=== PATIENT | female | born 1945 | race Caucasian/White ===

== ENCOUNTER 2021-01-30 11:25 | Observation (INO) | payer OTHER, SELFPAY ==
[2021-01-30] VITALS (22 sets, daily range): BP systolic 115–143; BP diastolic 52–80; PULSE 59–101; RESP 16–20; TEMP 36.6–37.1; O2SAT 94–100; BMI 41.8; BMI 38.9
[2021-01-30 12:19] LABS: Mean Corpuscular HGB Conc 32.8 % (30-36); Mean Corpuscular Hemoglobin 33.6 PG (26-34); Mean Corpuscular Volume 102.4 fL (80-100); Red Cell Distribution Width 17.2 % (11.6-14.8)
[2021-01-30 12:27] LABS: Alanine Aminotransferase 13 IU/L (<35); Albumin 3.6 g/dL (3.5-5.0); Albumin Globulin Ratio 1.5 (1.0-2.8); Alkaline Phosphatase 56 U/L (38-126); Aspartate Aminotransferase 17 IU/L (14-36); Bilirubin Total 0.7 mg/dL (0.2-1.3); Blood Urea Nitrogen 24 mg/dL (7-17); Calcium 9.4 mg/dL (8.4-10.2); Carbon Dioxide 26 mmol/L (22-32); Chloride 104 mmol/L (98-107); Estimated Glomerular Filt Rate > 60.0 mL/min (>60); Globulin 2.4 g/dL (1.7-4.1); Glucose 148 mg/dL (80-110); HEMOLYSIS < 15 (0-50); Potassium 3.7 mmol/L (3.4-5.1); Sodium 137 mmol/L (137-145)
[2021-01-30 12:30] LABS: Add Manual Diff / Slide Review YES; White Blood Cell Count 1.3 X10^3/uL (4.5-11.0)
[2021-01-30 12:31] LABS: Hematocrit 16.4 % (36-46); Hemoglobin 5.4 g/dL (12.0-16.0)
[2021-01-30 12:32] LABS: Platelet Count 17 X10^3/uL (150-400)
[2021-01-30 12:42] LABS: INR 1.4 (0.9-1.3)
--- NOTE | 2021-01-30 12:56 | ED.RECABL ---
HPI - Recheck/Abnormal Lab/Rx General Chief Complaint: Recheck/Abnormal Lab/Rx Stated Complaint: Low blood count/Anemia Time Seen by Provider: 01/30/21 11:34 Source: patient Mode of arrival: Ambulatory Limitations: no limitations History of Present Illness HPI narrative: 75-year-old female former smoker with history of metabolic syndrome and asthma presents with her at the request of her primary care office. She had been feeling weak, short of breath and fatigued over the past 1-2 weeks and has schedule an outpatient appointment which was yesterday. They obtain some labs and called her at home stating she should present to the closest emergency department stating she was anemic. She denies any history of this, has had no fever or chills and denies any bleeding. She has had no dark and tarry nor bloody stool. She denies any chest pain but is significantly short of breath with minimal exertion. She denies new medications, recent travel or history of cancer. MD complaint: abnormal lab Initial visit (ago): day(s) Initial visit for: other Returns today for: called because of abnormal lab/test Symptoms since prior visit: no new symptoms Context: called for abnormal lab result Associated symptoms: shortness of breath Review of Systems Constitutional Constitutional: Denies chills, Reports fatigue, Denies fever(s), Denies frequent falls, Reports lethargy and Reports weakness Eyes Eyes: Denies change in vision, Denies eye discharge, Denies irritation and Denies loss of vision ENT Ears, Nose, Mouth, and Throat: Denies change in voice, Denies dizziness, Denies neck pain, Denies sore throat and Denies throat swelling Cardiovascular Cardiovascular: Denies chest pain, Denies irregular heart rhythm, Denies lightheadedness, Denies palpitations, Reports dyspnea, Reports dyspnea on exertion and Denies orthopnea Respiratory Respiratory: Denies cough, Reports dyspnea, Reports dyspnea on exertion and Denies wheezing Gastrointestinal Gastrointestinal: Denies abdominal pain, Denies change in bowel habits, Denies diarrhea, Denies nausea and Denies vomiting Musculoskeletal Musculoskeletal: Denies neck pain and Denies numbness Integumentary/Breasts Skin/Breast: Denies pruritus, Denies erythema, Denies rash and Denies wounds Neurologic Neurologic: Denies behavioral changes, Denies confusion, Denies dizziness, Denies frequent falls, Denies loss of vision, Denies numbness and Reports weakness Psychiatric Psychiatric: Denies anxiety, Denies behavioral changes, Denies confusion, Denies depression, Denies homicidal ideation and Denies suicidal ideation Endocrine Endocrine: Reports fatigue, Denies flushing and Denies palpitations Hematologic/Lymphatic Hematologic/Lymphatic: Denies easy bruising Allergic/Immunologic Allergic/Immunologic: Denies urticaria, Denies throat swelling and Denies wheezing Patient History Social History Smoking Status: Former smoker Smoking Status: Former smoker alcohol intake frequency: 0-2 drinks per day Substance Use Type: does not use Exam Narrative Exam Narrative: GENERAL: [75] year old patient appears stated age. Well-developed patient, in mild distress. HEAD: Atraumatic. Normocephalic. EYES: Pale conjunctiva Pupils equal round and reactive. Extraocular motions intact. No scleral icterus. No injection or drainage. ENT: Nose without bleeding, purulent drainage. Throat without erythema, tonsillar hypertrophy or exudate. Airway patent. NECK: Trachea midline. Non tender CARDIOVASCULAR: Regular rate and rhythm without murmurs, gallops, or rubs. RESPIRATORY: Clear to auscultation. Breath sounds equal bilaterally. No wheezes, rales, or rhonchi. Increased work of breathing with exertion GASTROINTESTINAL: Abdomen soft, non-tender, nondistended. EXTREMITIES: No edema or joint tenderness. BACK: Nontender without deformity or crepitance. No flank tenderness. NEURO: AOx3. SKIN: No rash or erythema of visible areas Initial Vital Signs Initial Vital Signs: Vital Signs Pulse Rate 59 L 01/30/21 11:36 Blood Pressure 115/55 L 01/30/21 11:36 Pulse Oximetry 94 01/30/21 11:36 Course Orders Ordered: ED Orders 01/30/21 11:59 Prothrombin Time INR Stat 01/30/21 12:09 Complete Blood Count AUTO DIFF Stat Comprehensive Metabolic Panel Stat Packed Cells Stat Pathologist Review (for CBC) Stat Type and Screen Stat 01/30/21 12:37 COVID19 - ADMIT (INSTRUCTIONAL MATERIALS DIRECTOR swab/PCR) Stat 01/30/21 13:33 COVID19 - ADMIT (INSTRUCTIONAL MATERIALS DIRECTOR swab/PCR) Stat Consultations Consultation #1: Discussed with on-call Hematology (Dr. Gee). He is happy and available for consultation via phone, states there is no need for bone marrow biopsy during this visit but should happen in short order when she is discharged. He took her contact information down and I put in a consult to him Consultation #2: hospitalist happy to accept Vital Signs Vital signs: Vital Signs - 8 hr 01/30/21 11:36 01/30/21 11:37 01/30/21 12:00 Temperature 98.0 F Pulse Rate 59 L 101 H 90 Respiratory Rate 18 Blood Pressure 115/55 L 115/55 L Pulse Oximetry 94 100 99 01/30/21 12:30 01/30/21 12:44 01/30/21 13:27 Temperature 98.6 F Pulse Rate 83 82 Respiratory Rate 18 Blood Pressure 124/56 L 116/52 L Pulse Oximetry 98 MDM - Recheck/Abnormal Lab/Rx Lab Data Result diagrams: 01/30/21 12:09 01/30/21 12:09 Labs: Lab Results 01/30/21 01/30/21 01/30/21 Range/Units 11:59 12:09 12:09 WBC 1.3 L* (4.5-11.0) X10^3/uL RBC 1.60 L (4.0-5.2) X10^6/uL Hgb 5.4 L* (12.0-16.0) g/dL Hct 16.4 L* (36-46) % MCV 102.4 H (80-100) fL MCH 33.6 (26-34) PG MCHC 32.8 (30-36) % RDW 17.2 H (11.6-14.8) % Plt Count 17 L* (150-400) X10^3/uL Neut % (Auto) Not Reportable Lymph % (Auto) Not Reportable [place] % (Auto) Not Reportable Eos % (Auto) Not Reportable Baso % (Auto) Not Reportable Lymph # (Auto) Not Reportable [place] # (Auto) Not Reportable Baso # (Auto) Not Reportable Total Counted 50 Seg Neutrophils % 16.0 L (38-70) % Band Neutrophils % 4.0 (3-7) % Lymphocytes % (Manual) 62.0 H (25-45) % Atypical Lymphs % 4.0 H ( - 0) % Monocytes % (Manual) 6.0 (2-11) % Eosinophils % (Manual) 4.0 (2-4) % Basophils % (Manual) 4.0 H (0-1) % Neutrophils # (Manual) 260 L (4884-8770) /uL Nucleated RBCs 1 H ( - 0) #/Diff RBC Morphology Not Reportable Polychromasia 1+ H Hypochromasia 2+ H Poikilocytosis 1+ H Anisocytosis 2+ H PT 16.0 H (10.1-12.7) SECONDS INR 1.4 H (0.9-1.3) Sodium 137 (137-145) mmol/L Potassium 3.7 (3.4-5.1) mmol/L Chloride 104 (98-107) mmol/L Carbon Dioxide 26 (22-32) mmol/L BUN 24 H (7-17) mg/dL Creatinine 0.80 (0.52-1.04) mg/dL Estimated GFR > 60.0 (>60) mL/min BUN/Creatinine Ratio 30.0 H (6-22) Glucose 148 H (80-110) mg/dL Calcium 9.4 (8.4-10.2) mg/dL Total Bilirubin 0.7 (0.2-1.3) mg/dL AST 17 (14-36) IU/L ALT 13 (<35) IU/L Alkaline Phosphatase 56 (38-126) U/L Total Protein 6.0 L (6.3-8.2) g/dL Albumin 3.6 (3.5-5.0) g/dL Globulin 2.4 (1.7-4.1) g/dL Albumin/Globulin Ratio 1.5 (1.0-2.8) Blood Type Antibody Screen Crossmatch 01/30/21 Range/Units 12:09 WBC (4.5-11.0) X10^3/uL RBC (4.0-5.2) X10^6/uL Hgb (12.0-16.0) g/dL Hct (36-46) % MCV (80-100) fL MCH (26-34) PG MCHC (30-36) % RDW (11.6-14.8) % Plt Count (150-400) X10^3/uL Neut % (Auto) Lymph % (Auto) [place] % (Auto) Eos % (Auto) Baso % (Auto) Lymph # (Auto) [place] # (Auto) Baso # (Auto) Total Counted Seg Neutrophils % (38-70) % Band Neutrophils % (3-7) % Lymphocytes % (Manual) (25-45) % Atypical Lymphs % ( - 0) % Monocytes % (Manual) (2-11) % Eosinophils % (Manual) (2-4) % Basophils % (Manual) (0-1) % Neutrophils # (Manual) (8292-6457) /uL Nucleated RBCs ( - 0) #/Diff RBC Morphology Polychromasia Hypochromasia Poikilocytosis Anisocytosis PT (10.1-12.7) SECONDS INR (0.9-1.3) Sodium (137-145) mmol/L Potassium (3.4-5.1) mmol/L Chloride (98-107) mmol/L Carbon Dioxide (22-32) mmol/L BUN (7-17) mg/dL Creatinine (0.52-1.04) mg/dL Estimated GFR (>60) mL/min BUN/Creatinine Ratio (6-22) Glucose (80-110) mg/dL Calcium (8.4-10.2) mg/dL Total Bilirubin (0.2-1.3) mg/dL AST (14-36) IU/L ALT (<35) IU/L Alkaline Phosphatase (38-126) U/L Total Protein (6.3-8.2) g/dL Albumin (3.5-5.0) g/dL Globulin (1.7-4.1) g/dL Albumin/Globulin Ratio (1.0-2.8) Blood Type A Positive Antibody Screen Negative Crossmatch See Detail Discharge Plan Departure Patient Disposition: Admitted as Observation Clinical Impression: Symptomatic anemia, Pancytopenia Admit Date/Time: 01/30/21 13:36 Admit Provider: Primo Telles
[2021-01-30 13:05] LABS: Anisocytosis 2+; Hypochromasia 2+; Neutrophils Absolute Manual 260 /uL (3000-5900); Nucleated Red Blood Cells 1 #/Diff; Poikilocytosis 1+; Polychromasia 1+; Total Cells Counted 50
--- NOTE | 2021-01-30 14:06 | PC.NURSE ---
Pt was having too much pain at IV site,new iv started
--- NOTE | 2021-01-30 14:22 | PC.NURSE ---
pt states feeling exhausted for about a month, [place] wanted to wait to see her dr here, she was able to do that yesterday. lab results came in and the provider asked to to go to the ED.
--- NOTE | 2021-01-30 15:22 | PC.NURSE ---
pt admitted to room 221 with spouse, Cornelio in attendance. She declines pain or discomfort- endorses weakness/sob x 4 weeks - transfusing #1 out of 2 units rbc at present
[2021-01-30 15:33] LABS: COVID19 - ADMIT (NP swab/PCR) Negative (Negative)
--- NOTE | 2021-01-30 16:08 | PC.NURSE ---
Addendum entered by Hetal Chong R.N. 01/30/21 18:36: Verified with Dr. Telles no platelet infusion this evening shift. MD to order CBC @ 1999. Second unit PRBC's complete. Original Note: Pt lying quietly in bed. Is pale, but conversant. States feels better following first unit PRBC's. Second unit infusing as ordered. Pt's spouse present in room. Dr. Telles in to see patient. BL calf scd's in place. Given food and po fluids as per MD order. Pt denies nausea, denies pain.
[2021-01-30 16:28] LABS: HEMOLYSIS < 15 (0-50)
--- NOTE | 2021-01-30 16:29 | P.HP_ITS ---
History of Present Illness History of Present Illness Date Patient Seen: 01/30/21 Time Patient Seen: 16:29 Chief complaint: Low blood count/Anemia Narrative: Laura Farris is a 75 year old female with PMH of HTN, DM2, previous PUD on pepcid who was told by PCP office to go to the ER after lab draw yesterday. Patient reports for the past month she has had worsening fatigue, dyspnea on exertion. She does endorse some mild nausea and 1 episode of nonbloody nonbilious emesis, but no darker bloody bowel movements. She denies any headaches, vision changes, fevers, chills, muscle aches or joint pains. She does endorse some lower extremity swelling after her recent travels. She lives in [place] during the winter and in [place] during the summer. Her primary care provider is in [place]. She denies any chest pain, palpitations, cough, recent sick contacts. She has no recent medication changes. Meds per patient to the best of her ability at this time. Mirabegron, metformin BID, HCTZ, pepcid. Dosing unknown. PSH: appendectomy, hernia repair x2 abdominal, , no bowel surgery PFHx: no blood disorders or malignancy known in mother or father. SocHx: former smoker (>1 ppd x4 years), denies Etoh or illicit substances. In the emergency room, the patient's vital signs were unremarkable. Initial laboratory evaluation revealed a pancytopenia with WBC of 1.3, hemoglobin 5.4, MCV 102.4, platelet count of 17. There is no evidence of active bleeding. Coagulation studies show an INR of 1.4. Chemistries showed a mildly elevated glucose at 148 but were otherwise unremarkable. Iron panel was ordered on pre- transfusion labs as was B12 and folate, the labs are currently pending. COVID- 19 testing was negative. Patient was ordered for transfusion and admitted to Medicine for further management of her pancytopenia, but mainly symptomatic a nemia. ER discussed with Hematology who recommended outpatient follow-up after appropriate evaluation and infusions. Patient History Medical History (Updated 01/30/21 @ 16:44 by Primo Telles DO) Bladder incontinence HTN (hypertension) Peptic ulcer disease Type 2 diabetes mellitus Surgical History H/O hernia repair History of appendectomy History of section Family & Social History Social History: household members spouse Prior Living Arrangements RV Safety & Behavioral: Feels Safe in Current Yes Environment Been Physically Hurt or No Threatened By a Person Suicidal Ideation Description None Suicide Plan Description No Plan Tobacco & Substance use: Smoking Status Former smoker alcohol intake frequency 0-2 drinks per day Substance Use Type does not use Meds Home Medications and Allergies Allergies Allergy/AdvReac Type Severity Reaction Status Date / Time adhesive tape Allergy Severe SKIN Verified 01/30/21 17:13 BREAKDOWN/RASH cephalexin Allergy Severe Anaphylaxis Verified 01/30/21 17:13 ciprofloxacin Allergy Severe Anaphylaxis Verified 01/30/21 17:13 Iodine and Iodide Containing Allergy Intermediate RASH AND Verified 01/30/21 17:13 Produc ITCHING naproxen Allergy Intermediate RASH AND Verified 01/30/21 17:09 ITCHING Review of Systems Review of Systems Narrative: All other systems reviewed with the patient and are negative unless otherwise stated. Exam Vital Signs (past 8 hours): - 01/30/21 11:36 01/30/21 11:37 01/30/21 12:00 Temperature 98.0 F Pulse Rate 59 L 101 H 90 Respiratory Rate 18 Blood Pressure 115/55 L 115/55 L Pulse Oximetry 94 100 99 01/30/21 12:30 01/30/21 12:44 01/30/21 13:00 Temperature Pulse Rate 83 84 80 Respiratory Rate 17 Blood Pressure 124/56 L Pulse Oximetry 98 99 99 01/30/21 13:23 01/30/21 13:27 01/30/21 13:30 Temperature 98.6 F Pulse Rate 82 82 82 Respiratory Rate 18 18 Blood Pressure 116/52 L 116/52 L Pulse Oximetry 98 98 01/30/21 13:39 01/30/21 13:42 01/30/21 13:43 Temperature 98.0 F 98.1 F Pulse Rate 89 87 86 Respiratory Rate 18 20 Blood Pressure 122/59 L 122/59 L 141/71 H Pulse Oximetry 98 01/30/21 14:00 01/30/21 14:05 01/30/21 14:42 Temperature 97.8 F Pulse Rate 82 85 Respiratory Rate 19 Blood Pressure 121/59 L 134/74 Pulse Oximetry 98 98 100 01/30/21 15:54 01/30/21 16:18 Temperature 98.1 F 98.6 F Pulse Rate 86 85 Respiratory Rate 20 16 Blood Pressure 141/71 H 120/68 Pulse Oximetry Oxygen Delivery Method Room Air Oxygen Flow Rate 0 Narrative Exam Narrative: GENERAL APPEARANCE: Well developed, well nourished, obese female BMI 38.9, pale, no acute distress. SKIN: Inspection of the skin reveals no rashes, ulcerations or petechiae. HEENT: Normocephalic atraumatic, extraocular muscles are intact, oropharynx is clear and mucous membranes are moist, neck is supple without adenopathy NECK: Supple and symmetric. There was no thyroid enlargement, and no tenderness, or masses were felt. CHEST: Normal AP diameter and normal contour without any kyphoscoliosis. LUNGS: Auscultation of the lungs revealed no wheezes, rhonchi, or rales. CARDIOVASCULAR: There was a regular rate and rhythm without any murmurs, gallops, rubs. Peripheral pulses were 2+ and symmetric. ABDOMEN: Soft and nontender with normal bowel sounds. No ascites was noted. MUSCULOSKELETAL: There was no tenderness or effusions noted. Muscle strength and tone were normal. EXTREMITIES: No cyanosis, clubbing or edema. NEUROLOGIC: Alert and oriented x 3. Normal affect. Strength is +5/5 in the Upper Extremities and Lower Extremities Bilaterally. Objective Labs Result Diagrams: 01/30/21 12:09 01/30/21 12:09 Labs: Laboratory Results - last 24 hr 01/30/21 01/30/21 01/30/21 11:59 12:09 12:09 WBC 1.3 L* RBC 1.60 L Hgb 5.4 L* Hct 16.4 L* MCV 102.4 H MCH 33.6 MCHC 32.8 RDW 17.2 H Plt Count 17 L* Neut % (Auto) Not Reportable Lymph % (Auto) Not Reportable [place] % (Auto) Not Reportable Eos % (Auto) Not Reportable Baso % (Auto) Not Reportable Lymph # (Auto) Not Reportable [place] # (Auto) Not Reportable Baso # (Auto) Not Reportable Total Counted 50 Seg Neutrophils % 16.0 L Band Neutrophils % 4.0 Lymphocytes % (Manual) 62.0 H Atypical Lymphs % 4.0 H Monocytes % (Manual) 6.0 Eosinophils % (Manual) 4.0 Basophils % (Manual) 4.0 H Neutrophils # (Manual) 260 L Nucleated RBCs 1 H RBC Morphology Not Reportable Polychromasia 1+ H Hypochromasia 2+ H Poikilocytosis 1+ H Anisocytosis 2+ H PT 16.0 H INR 1.4 H Sodium 137 Potassium 3.7 Chloride 104 Carbon Dioxide 26 BUN 24 H Creatinine 0.80 Estimated GFR > 60.0 BUN/Creatinine Ratio 30.0 H Glucose 148 H Calcium 9.4 Total Bilirubin 0.7 AST 17 ALT 13 Alkaline Phosphatase 56 Total Protein 6.0 L Albumin 3.6 Globulin 2.4 Albumin/Globulin Ratio 1.5 SARS-CoV-2 (PCR) Blood Type Antibody Screen Crossmatch 01/30/21 01/30/21 12:09 13:35 WBC RBC Hgb Hct MCV MCH MCHC RDW Plt Count Neut % (Auto) Lymph % (Auto) [place] % (Auto) Eos % (Auto) Baso % (Auto) Lymph # (Auto) [place] # (Auto) Baso # (Auto) Total Counted Seg Neutrophils % Band Neutrophils % Lymphocytes % (Manual) Atypical Lymphs % Monocytes % (Manual) Eosinophils % (Manual) Basophils % (Manual) Neutrophils # (Manual) Nucleated RBCs RBC Morphology Polychromasia Hypochromasia Poikilocytosis Anisocytosis PT INR Sodium Potassium Chloride Carbon Dioxide BUN Creatinine Estimated GFR BUN/Creatinine Ratio Glucose Calcium Total Bilirubin AST ALT Alkaline Phosphatase Total Protein Albumin Globulin Albumin/Globulin Ratio SARS-CoV-2 (PCR) Negative Blood Type A Positive Antibody Screen Negative Crossmatch See Detail Assessment & Plan Assessment & Plan narrative: Laura Farris is a 75 year old female with PMH of HTN, DM2, previous PUD admitted with pancytopenia. 1. Pancytopenia, acute, present on admission -unclear source but differentials include but are not limited to iron, B12 and folate deficiencies, medication induced pancytopenia including secondary to chronic Pepcid use or Mirabegron, HIV, primary bone disorders. -will hold these medications at this time, while iron panel, b12/folate, and HIV testing pending. -continue transfusion for symptomatic anemia -check TSH -if no easily reversible cause, blood count improved after transufusions, can likely discharge tomorrow for outpatient hematology evaluation. -plt goal >10 unless active bleeding. if bleeding transfuse - Hg goal >7. recheck cbc after transfusion. 2. DM2 - appears to be on metformin only, will start with fingersticks and low dose sliding scale. Hold metformin during hospitalization. 3. HTN - hold home HCTZ, currently normotensive likely secondary to anemia. Code: Full, surrogate decision maker is her , son is medical power of attourney Dispo: [place] under observation as her stay is not expected to exceed 2 midnights DVT: Hold chemical prophylaxis given thrombocytopenia
[2021-01-30 16:39] LABS: Total Iron Binding Capacity 331 ug/dL (265-497); Transferrin 235 mg/dL (206-381)
[2021-01-30 17:26] LABS: Vitamin B12 Reflex MMA if <400 611 pg/mL (239-931)
[2021-01-30 17:44] LABS: Folate > 20.0 ng/mL (2.76-20.0)
[2021-01-30] MEDS: SODIUM CHLORIDE 0.9% FLUSH 10 ML IV (18:51)
[2021-01-30 18:55] LABS: Iron 138 ug/dL (37-170); Percent Iron Saturation 42 % (15-50)
[2021-01-30 20:45] LABS: Hematocrit 24.5 % (36-46); Hemoglobin 8.3 g/dL (12.0-16.0); Mean Corpuscular Hemoglobin 32.9 PG (26-34); Mean Corpuscular Volume 96.7 fL (80-100); Red Blood Cell Count 2.53 X10^6/uL (4.0-5.2); Red Cell Distribution Width 17.8 % (11.6-14.8); White Blood Cell Count 2.2 X10^3/uL (4.5-11.0)
[2021-01-30 20:51] LABS: Platelet Count 18 X10^3/uL (150-400)
[2021-01-30 20:54] LABS: Add Manual Diff / Slide Review YES
[2021-01-30 21:08] LABS: Neutrophils Absolute Manual 352 /uL (3000-5900); Nucleated Red Blood Cells 2 #/Diff; Total Cells Counted 50
[2021-01-30 21:09] LABS: Platelet Estimate Decreased on smear; RBC Morphology Normal Morphology
[2021-01-31 00:02] VITALS: O2SAT 96
[2021-01-31 01:38] LABS: TSH w/ Reflex to FT4 1.49 uIU/mL (0.47-4.68)
[2021-01-31 02:02] LABS: HIV 1 & 2 Ab/Ag 4th Gen Combo NEGATIVE (NEGATIVE)
[2021-01-31 04:05] VITALS: O2SAT 96
[2021-01-31 05:00] VITALS: BP 135/78; PULSE 81; RESP 18; TEMP 36.3; O2SAT 98
[2021-01-31 05:28] LABS: BUN Creatinine Ratio 30.9 (6-22); Blood Urea Nitrogen 25 mg/dL (7-17); Calcium 9.4 mg/dL (8.4-10.2); Carbon Dioxide 28 mmol/L (22-32); Chloride 103 mmol/L (98-107); Estimated Glomerular Filt Rate > 60.0 mL/min (>60); Glucose 100 mg/dL (80-110); HEMOLYSIS < 15 (0-50); Sodium 137 mmol/L (137-145)
[2021-01-31 07:20] VITALS: BP 135/82; PULSE 71; RESP 16; TEMP 36.3; O2SAT 97
[2021-01-31 08:32] LABS: Hematocrit 23.9 % (36-46); Hemoglobin 8.1 g/dL (12.0-16.0); Mean Corpuscular Hemoglobin 32.9 PG (26-34); Mean Corpuscular Volume 96.9 fL (80-100); Red Blood Cell Count 2.46 X10^6/uL (4.0-5.2); Red Cell Distribution Width 17.9 % (11.6-14.8)
[2021-01-31 08:36] LABS: Add Manual Diff / Slide Review YES; Platelet Count 15 X10^3/uL (150-400)
--- NOTE | 2021-01-31 09:18 | P.DS_ITS ---
History of Present Illness History of Present Illness Date Patient Seen: 01/31/21 Time Patient Seen: 09:18 Chief complaint: Low blood count/Anemia Narrative: Laura Farris is a 75 year old female with PMH of HTN, DM2, previous PUD on pepcid who was told by PCP office to go to the ER after lab draw yesterday. Patient reports for the past month she has had worsening fatigue, dyspnea on exertion. She does endorse some mild nausea and 1 episode of nonbloody nonbilious emesis, but no darker bloody bowel movements. She denies any headaches, vision changes, fevers, chills, muscle aches or joint pains. She does endorse some lower extremity swelling after her recent travels. She lives in [place] during the winter and in [place] during the summer. Her primary care provider is in [place]. She denies any chest pain, palpitations, cough, recent sick contacts. She has no recent medication changes. Meds per patient to the best of her ability at this time. Mirabegron, metformin BID, HCTZ, pepcid. Dosing unknown. PSH: appendectomy, hernia repair x2 abdominal, , no bowel surgery PFHx: no blood disorders or malignancy known in mother or father. SocHx: former smoker (>1 ppd x4 years), denies Etoh or illicit substances. In the emergency room, the patient's vital signs were unremarkable. Initial laboratory evaluation revealed a pancytopenia with WBC of 1.3, hemoglobin 5.4, MCV 102.4, platelet count of 17. There is no evidence of active bleeding. Coagulation studies show an INR of 1.4. Chemistries showed a mildly elevated glucose at 148 but were otherwise unremarkable. Iron panel was ordered on pre- transfusion labs as was B12 and folate, the labs are currently pending. COVID- 19 testing was negative. Patient was ordered for transfusion and admitted to Medicine for further management of her pancytopenia, but mainly symptomatic a nemia. ER discussed with Hematology who recommended outpatient follow-up after appropriate evaluation and infusions. Discharge Providers Provider Date of admission: 01/30/21 13:36 Discharge Date: 01/31/21 Consults: 01/30/21 13:36 Consult to Oncology Stat Comment: Consulting Provider: Mary Ellen Gee Reason for consultation: pancytopenia Has provider been notified: Yes Discharge provider: Primo Telles DO Summary Hospital Course Discharge Diagnosis: 1. Pancytopenia, acute, present on admission 2. DM2 3. HTN Hospital Course: Laura Farris is a 75 year old female with PMH of HTN, DM2, previous PUD admitted with pancytopenia. Her symptoms were improved with 2 units of packed red blood cells. The following morning her blood counts were stable and she had no active evidence of bleeding. Arrangement was made for outpatient Hematology consultation, initial evaluation including B12, folate, iron panel, HIV testing, and infectious workup were unremarkable. There may be a slight iron deficiency based on her iron profile which was drawn prior to her transfusion. She has been on chronic famotidine due to prior peptic ulcer disease which can cause pancytopenia, was recommended that she stop taking this medication. She plans to follow up with outpatient Hematology either here or with her primary care provider in [place]. Exam Vital Signs (past 8 hours): - 01/31/21 04:05 01/31/21 05:00 01/31/21 07:20 Temperature 97.3 F L 97.3 F L Pulse Rate 81 71 Respiratory Rate 18 16 Blood Pressure 135/78 135/82 Pulse Oximetry 96 98 97 Oxygen Delivery Method Room Air Oxygen Flow Rate 0 Narrative Exam Narrative: GENERAL APPEARANCE: Well developed, well nourished, obese female BMI 38.9, pale, no acute distress. SKIN: Inspection of the skin reveals no rashes, ulcerations or petechiae. HEENT: Normocephalic atraumatic, extraocular muscles are intact, oropharynx is clear and mucous membranes are moist, neck is supple without adenopathy NECK: Supple and symmetric. There was no thyroid enlargement, and no tenderness, or masses were felt. CHEST: Normal AP diameter and normal contour without any kyphoscoliosis. LUNGS: Auscultation of the lungs revealed no wheezes, rhonchi, or rales. CARDIOVASCULAR: There was a regular rate and rhythm without any murmurs, gallops, rubs. Peripheral pulses were 2+ and symmetric. ABDOMEN: Soft and nontender with normal bowel sounds. No ascites was noted. MUSCULOSKELETAL: There was no tenderness or effusions noted. Muscle strength and tone were normal. EXTREMITIES: No cyanosis, clubbing or edema. NEUROLOGIC: Alert and oriented x 3. Normal affect. Strength is +5/5 in the Upper Extremities and Lower Extremities Bilaterally. Objective Labs Result Diagrams: 01/31/21 08:20 01/31/21 04:50 Labs: Laboratory Results - last 24 hr 01/30/21 01/30/21 01/30/21 11:55 11:55 11:55 WBC RBC Hgb Hct MCV MCH MCHC RDW Plt Count Neut % (Auto) Lymph % (Auto) King[place]isher % (Auto) Eos % (Auto) Baso % (Auto) Neut # (Auto) Lymph # (Auto) [place] # (Auto) Eos # (Auto) Baso # (Auto) Total Counted Seg Neutrophils % Band Neutrophils % Lymphocytes % (Manual) Atypical Lymphs % Monocytes % (Manual) Eosinophils % (Manual) Basophils % (Manual) Blast Cells % Neutrophils # (Manual) Nucleated RBCs Platelet Estimate RBC Morphology Polychromasia Hypochromasia Poikilocytosis Anisocytosis PT INR Sodium Potassium Chloride Carbon Dioxide BUN Creatinine Estimated GFR BUN/Creatinine Ratio Glucose Calcium Magnesium Iron 138 TIBC 331 % Saturation 42 Transferrin 235 Total Bilirubin AST ALT Alkaline Phosphatase Total Protein Albumin Globulin Albumin/Globulin Ratio Vitamin B12 611 Folate > 20.0 H TSH SARS-CoV-2 (PCR) HIV 1&2 Ab/P24 Ag 4thGn Blood Type Antibody Screen Crossmatch 01/30/21 01/30/21 01/30/21 11:55 11:55 11:59 WBC RBC Hgb Hct MCV MCH MCHC RDW Plt Count Neut % (Auto) Lymph % (Auto) [place] % (Auto) Eos % (Auto) Baso % (Auto) Neut # (Auto) Lymph # (Auto) [place] # (Auto) Eos # (Auto) Baso # (Auto) Total Counted Seg Neutrophils % Band Neutrophils % Lymphocytes % (Manual) Atypical Lymphs % Monocytes % (Manual) Eosinophils % (Manual) Basophils % (Manual) Blast Cells % Neutrophils # (Manual) Nucleated RBCs Platelet Estimate RBC Morphology Polychromasia Hypochromasia Poikilocytosis Anisocytosis PT 16.0 H INR 1.4 H Sodium Potassium Chloride Carbon Dioxide BUN Creatinine Estimated GFR BUN/Creatinine Ratio Glucose Calcium Magnesium Iron TIBC % Saturation Transferrin Total Bilirubin AST ALT Alkaline Phosphatase Total Protein Albumin Globulin Albumin/Globulin Ratio Vitamin B12 Folate TSH 1.49 SARS-CoV-2 (PCR) HIV 1&2 Ab/P24 Ag 4thGn Negative Blood Type Antibody Screen Crossmatch 01/30/21 01/30/21 01/30/21 12:09 12:09 12:09 WBC 1.3 L* RBC 1.60 L Hgb 5.4 L* Hct 16.4 L* MCV 102.4 H MCH 33.6 MCHC 32.8 RDW 17.2 H Plt Count 17 L* Neut % (Auto) Not Reportable Lymph % (Auto) Not Reportable Kingfisher % (Auto) Not Reportable Eos % (Auto) Not Reportable Baso % (Auto) Not Reportable Neut # (Auto) Lymph # (Auto) Not Reportable [place] # (Auto) Not Reportable Eos # (Auto) Baso # (Auto) Not Reportable Total Counted 50 Seg Neutrophils % 16.0 L Band Neutrophils % 4.0 Lymphocytes % (Manual) 62.0 H Atypical Lymphs % 4.0 H Monocytes % (Manual) 6.0 Eosinophils % (Manual) 4.0 Basophils % (Manual) 4.0 H Blast Cells % Neutrophils # (Manual) 260 L Nucleated RBCs 1 H Platelet Estimate RBC Morphology Not Reportable Polychromasia 1+ H Hypochromasia 2+ H Poikilocytosis 1+ H Anisocytosis 2+ H PT INR Sodium 137 Potassium 3.7 Chloride 104 Carbon Dioxide 26 BUN 24 H Creatinine 0.80 Estimated GFR > 60.0 BUN/Creatinine Ratio 30.0 H Glucose 148 H Calcium 9.4 Magnesium Iron TIBC % Saturation Transferrin Total Bilirubin 0.7 AST 17 ALT 13 Alkaline Phosphatase 56 Total Protein 6.0 L Albumin 3.6 Globulin 2.4 Albumin/Globulin Ratio 1.5 Vitamin B12 Folate TSH SARS-CoV-2 (PCR) HIV 1&2 Ab/P24 Ag 4thGn Blood Type A Positive Antibody Screen Negative Crossmatch See Detail 01/30/21 01/30/21 01/31/21 13:35 20:37 04:50 WBC 2.2 L D RBC 2.53 L Hgb 8.3 L Hct 24.5 L MCV 96.7 D MCH 32.9 MCHC 34.0 RDW 17.8 H Plt Count 18 L* Neut % (Auto) Air Analysis Engineering Technician Lymph % (Auto) Air Analysis Engineering Technician Kingfisher % (Auto) Air Analysis Engineering Technician Eos % (Auto) Air Analysis Engineering Technician Baso % (Auto) Air Analysis Engineering Technician Neut # (Auto) Air Analysis Engineering Technician Lymph # (Auto) Air Analysis Engineering Technician Kingfisher # (Auto) Air Analysis Engineering Technician Eos # (Auto) Air Analysis Engineering Technician Baso # (Auto) Air Analysis Engineering Technician Total Counted 50 Seg Neutrophils % 12.0 L Band Neutrophils % 4.0 Lymphocytes % (Manual) 56.0 H Atypical Lymphs % 14.0 H Monocytes % (Manual) 4.0 Eosinophils % (Manual) 4.0 Basophils % (Manual) 4.0 H Blast Cells % 2.0 H Neutrophils # (Manual) 352 L Nucleated RBCs 2 H Platelet Estimate Decreased on smear RBC Morphology Normal morphology Polychromasia Hypochromasia Poikilocytosis Anisocytosis PT INR Sodium 137 Potassium 4.0 Chloride 103 Carbon Dioxide 28 BUN 25 H Creatinine 0.81 Estimated GFR > 60.0 BUN/Creatinine Ratio 30.9 H Glucose 100 Calcium 9.4 Magnesium 2.0 Iron TIBC % Saturation Transferrin Total Bilirubin AST ALT Alkaline Phosphatase Total Protein Albumin Globulin Albumin/Globulin Ratio Vitamin B12 Folate TSH SARS-CoV-2 (PCR) Negative HIV 1&2 Ab/P24 Ag 4thGn Blood Type Antibody Screen Crossmatch 01/31/21 08:20 WBC 2.0 L RBC 2.46 L Hgb 8.1 L Hct 23.9 L MCV 96.9 MCH 32.9 MCHC 34.0 RDW 17.9 H Plt Count 15 L* Neut % (Auto) Not Reportable Lymph % (Auto) Not Reportable Kingfisher % (Auto) Not Reportable Eos % (Auto) Not Reportable Baso % (Auto) Not Reportable Neut # (Auto) Lymph # (Auto) Not Reportable [place] # (Auto) Not Reportable Eos # (Auto) Baso # (Auto) Not Reportable Total Counted Seg Neutrophils % Band Neutrophils % Lymphocytes % (Manual) Atypical Lymphs % Monocytes % (Manual) Eosinophils % (Manual) Basophils % (Manual) Blast Cells % Neutrophils # (Manual) Nucleated RBCs Platelet Estimate RBC Morphology Polychromasia Hypochromasia Poikilocytosis Anisocytosis PT INR Sodium Potassium Chloride Carbon Dioxide BUN Creatinine Estimated GFR BUN/Creatinine Ratio Glucose Calcium Magnesium Iron TIBC % Saturation Transferrin Total Bilirubin AST ALT Alkaline Phosphatase Total Protein Albumin Globulin Albumin/Globulin Ratio Vitamin B12 Folate TSH SARS-CoV-2 (PCR) HIV 1&2 Ab/P24 Ag 4thGn Blood Type Antibody Screen Crossmatch [facility] Medical History (Updated 01/30/21 @ 16:44 by Primo Telles DO) Bladder incontinence HTN (hypertension) Peptic ulcer disease Type 2 diabetes mellitus Surgical History H/O hernia repair History of appendectomy History of section Social History household members: spouse Smoking Status: Former smoker Discharge Plan Discharge Plan Patient Disposition: Home Provider Discharge Comment: You were admitted to the hospital with low blood counts. No apparent cause was found. Your symptoms improved with blood transfusi on. No exact etiology was able to be identified, I do recommend you stopping her Pepcid as this can cause pancytopenia. I left a message for the soap drier tender in their clinic should call you with a follow-up visit. You can also pursue hematology consultation through your primary care provider's office. Discharge orders & Medications Prescriptions: Continued citalopram PO DAILY RF: 0 fenofibrate PO DAILY RF: 0 metformin 500 mg Tablet 500 mg PO BID RF: 0 Zyrtec 10 mg Capsule 10 mg PO DAILY RF: 0 Myrbetriq PO DAILY RF: 0 Micardis PO QPM RF: 0 Advair Diskus inhalation DAILY RF: 0 Astelin intranasal BID RF: 0 Adult One Daily Multivitamin 1 tab PO DAILY RF: 0 Discontinued Pepcid PO DAILY RF: 0 Diet/Activity/Treatments Diet: Diet as Tolerated Activity: As tolerated Visit Report/Discharge Packet Instructions: Anemia Discharge Data Attending Provider: Primo Telles
[2021-01-31 09:32] LABS: Neutrophils Absolute Manual 380 /uL (3000-5900); Nucleated Red Blood Cells 1 #/Diff; Total Cells Counted 100
[2021-01-31 09:34] LABS: Poikilocytosis 1+
[2021-01-31 09:37] LABS: Anisocytosis 3+; Polychromasia 1+
[2021-01-31 09:38] LABS: Platelet Estimate Decreased on smear
--- NOTE | 2021-01-31 09:51 | PC.NURSE ---
Patient is doing well this morning, she will be discharged home around 1100am. She states that she is feeling better after getting 2u of blood. Platelet count down to 15, Tamika called to give results to this RN, Carol Ann. Visitor in room now.
[2021-01-31 10:20] VITALS: O2SAT 98
[2021-01-31 10:25] VITALS: O2SAT 98
--- NOTE | 2021-01-31 11:17 | CM.IDA ---
Addendum entered by KENYON Oswald 01/31/21 15:00: TC from Clarisse at [facility]/, states Dr Telles had requested an urgent f/u for patient w/ Dr Gee for new dx Pancytopenia/anemia; Clarisse needs Dr Telles's signature on an authorization request form from [employer]. Clarisse faxed, this SUPERVISOR CURING ROOM got Dr Telles to sign and then faxed signed auth request form back to Clarisse at Fax ext [phone] JW Original Note: Initial DCP Assessment Note Pt is a 75 yo female who has been traveling w/spouse via RV, presents to the ER d/t an abnormal/low blood count/anemia. DC order placed by Dr Telles this morning. Patient DC w/close outpatient f/u w/Hematology recommended . PCP: PCP located in the [facility] Payer: [employer] (spouse is retired [employer]) Met w/patient and her Susanne this morning, introduced role. Patient and spouse lived in the [facility] for approx. 30 years and began traveling/living in their RV 7 years ago. Patient/spouse have two adult children that live in the [facility]. Patient eager to DC today and denies needs from this [employer] RO[employer]. PLan: home to RV w/supportive spouse No needs expected from DC planning team although will remain available in case this changes today. KENYON Oswald
== END 2021-01-31 11:15 | disposition home or self-care (01) ==
LOC: ED 12:38 → AC 13:37
PROVIDERS: Admitting Provider Internal Medicine; Emergency Provider Emergency Medicine; Referring Provider Emergency Medicine; Visit Provider Internal Medicine
DX: D61.818 Other pancytopenia (principal); D64.9 Anemia, unspecified; E11.9 Type 2 diabetes mellitus without complications; I10 Essential (primary) hypertension; K27.9 Peptic ulcer, site unspecified, unspecified as acute or chronic, without hemorrhage or perforation; R32 Unspecified urinary incontinence; Z79.84 Long term (current) use of oral hypoglycemic drugs; Z20.822 Contact with and (suspected) exposure to COVID-19
CPT/HCPCS: 36415; 36430; 80048; 80053; 82607; 82746; 82962; 83540; 83550; 83735; 84443; 85007; 85025; 85610; 86850; 86900; 86901; 87389; 87635; 94760; 99284; C9803; G0378; P9016

== ENCOUNTER 2021-02-02 12:47 | Emergency (ER) | payer OTHER, SELFPAY ==
[2021-01-30 14:47] VITALS: BMI 38.9
[2021-02-02 12:59] VITALS: BP 178/77; PULSE 77; RESP 20; TEMP 36.9; O2SAT 100; BMI 38.9
--- NOTE | 2021-02-02 16:38 | ED.SKABFB ---
HPI - Skin/Abscess/Foreign Bdy General Chief complaint: Skin/Abscess/Foreign Body Stated complaint: something painful on belly possibly cellulitis Time Seen by Provider: 02/02/21 12:58 Source: patient Mode of arrival: Ambulatory Limitations: no limitations History of Present Illness HPI narrative: 75-year-old female former smoker with history of metabolic syndrome and asthma presents with her and a chief complaint of a small tender red hopland on her left lower abdomen and concern for cellulitis. She denies any systemic findings such as fever, chills nor nausea or vomiting. She denies any significant history of prior episodes of skin infection. Patient was recently hospitalized for evaluation treatment of her pancytopenia. She is otherwise well and free of complaint. MD complaint: rash Onset (ago): minute(s) Tetanus up to date: yes Severity: mild Quality: burning and aching Relieving factors: none Context: none Treatments prior to arrival: none Related Data Home Medications Medication Instructions Recorded Confirmed Adult One Daily Multivitamin 1 tab PO DAILY 01/30/21 01/30/21 Advair Diskus INHALATION DAILY 01/30/21 Astelin INTRANASAL BID 01/30/21 Micardis mg PO QPM 01/30/21 Myrbetriq mg PO DAILY 01/30/21 Zyrtec 10 mg PO DAILY 01/30/21 01/30/21 citalopram mg PO DAILY 01/30/21 fenofibrate mg PO DAILY 01/30/21 metformin 500 mg PO BID 01/30/21 01/30/21 Previous Rx's Medication Instructions Recorded doxycycline hyclate 100 mg PO BID #20 tab 02/02/21 hydrocodone-acetaminophen 1 tab PO Q4-6H PRN #10 tab 02/02/21 Allergies Allergy/AdvReac Type Severity Reaction Status Date / Time adhesive tape Allergy Severe SKIN Verified 01/30/21 17:13 BREAKDOWN/RASH cephalexin Allergy Severe Anaphylaxis Verified 01/30/21 17:13 ciprofloxacin Allergy Severe Anaphylaxis Verified 01/30/21 17:13 Iodine and Iodide Containing Allergy Intermediate RASH AND Verified 01/30/21 17:13 Produc ITCHING naproxen Allergy Intermediate RASH AND Verified 01/30/21 17:09 ITCHING Review of Systems Constitutional Constitutional: Denies chills, Denies fatigue, Denies fever(s), Denies frequent falls, Denies lethargy and Denies weakness Eyes Eyes: Denies change in vision, Denies eye discharge, Denies irritation and Denies loss of vision ENT Ears, Nose, Mouth, and Throat: Denies change in voice, Denies dizziness, Denies neck pain, Denies sore throat and Denies throat swelling Cardiovascular Cardiovascular: Denies chest pain, Denies irregular heart rhythm, Denies lightheadedness, Denies palpitations, Denies dyspnea, Denies dyspnea on exertion and Denies orthopnea Respiratory Respiratory: Denies cough, Denies dyspnea, Denies dyspnea on exertion and Denies wheezing Gastrointestinal Gastrointestinal: Denies abdominal pain, Denies change in bowel habits, Denies diarrhea, Denies nausea and Denies vomiting Musculoskeletal Musculoskeletal: Denies neck pain and Denies numbness Integumentary/Breasts Skin/Breast: Denies pruritus, Reports erythema, Denies rash, Reports skin pain, Reports skin swelling and Denies wounds Neurologic Neurologic: Denies behavioral changes, Denies confusion, Denies dizziness, Denies frequent falls, Denies loss of vision, Denies numbness and Denies weakness Psychiatric Psychiatric: Denies anxiety, Denies behavioral changes, Denies confusion, Denies depression, Denies homicidal ideation and Denies suicidal ideation Endocrine Endocrine: Denies fatigue, Denies flushing and Denies palpitations Hematologic/Lymphatic Hematologic/Lymphatic: Denies easy bruising Allergic/Immunologic Allergic/Immunologic: Denies urticaria, Denies throat swelling and Denies wheezing Patient History Medical History Bladder incontinence HTN (hypertension) Peptic ulcer disease Type 2 diabetes mellitus Surgical History H/O hernia repair History of appendectomy History of section Social History household members: spouse Smoking Status: Former smoker Smoking Status: Former smoker alcohol intake frequency: 0-2 drinks per day Substance Use Type: does not use Exam Narrative Exam Narrative: GEN: AOx3 and in mild distress EYES: Pupils are equal, round, and reactive to light and accommodation. Extraoccular muscles are intact bilaterally. There is no subconjunctival hemorrhage or exudate. CHEST: Lungs are clear to auscultation bilaterally and free of wheezes, rales, or rhonchi. Heart rate is regular rhythm, there are no murmurs, clicks, rubs, or gallops. There is no chest wall tenderness. ABD: Abdomen is soft and nontender. There is no guarding or rebound. Bowel sounds are normal in all 4 quadrants. There is no mass or organomegaly. EXT: Full painless ROM of all extremities with no loss of sensation or strength. SKIN: 3x3cm area on anterior left lower abdomen with well-circumscribed erythema and tenderness very minimal induration and no fluctuance. Deep palpation into the abdomen elicits no pain Warm, pink, and dry. No erythema or rash Initial Vital Signs Initial Vital Signs: Vital Signs Temperature 98.5 F 02/02/21 12:59 Pulse Rate 77 02/02/21 12:59 Respiratory Rate 20 02/02/21 12:59 Blood Pressure 178/77 H 02/02/21 12:59 Pulse Oximetry 100 02/02/21 12:59 Course Vital Signs Vital signs: Vital Signs - 8 hr 02/02/21 12:59 Temperature 98.5 F Pulse Rate 77 Respiratory Rate 20 Blood Pressure 178/77 H Pulse Oximetry 100 MDM - Skin/Abscess/Foreign Bdy MDM Narrative Medical decision making narrative: left lower abdominal redness and pain without fluctuance, drainage or deep pain. No systemic findings. Most consistent with cellulitis. Return precautions given and questions answered to their apparent satisfaction Discharge Plan Departure Patient Disposition: Home Clinical Impression: Cellulitis Qualifiers: Site of cellulitis: trunk Site of cellulitis of trunk: abdominal wall Qualified Code(s): L03.311 - Cellulitis of abdominal wall Instructions: DI for Cellulitis -- Adult Activity Restrictions/Additional Instructions: *You have been diagnosed with [superficial cellulitis left lower quadrant of abdominal wall, no suspicion of deep infection, abscess or other currently] *What to do: *Please continue to take your regular medications as directed. [ x] New medication prescriptions sent to your pharmacy: [[facility] ] [ ] New medication written as a paper prescription [ ] No new medications given *Please follow up with your primary care provider in 2-3 days, call for an appointment. Let them know you were seen in the Emergency Department and that we ask that you be seen in follow up. We will electronically transmit a record of today's note if your PCP is in our system *If you do not have a primary care provider please contact the [facility] Resource line at [phone]. They will ask some questions about your medical history and help get you set up with a doctor in the community. *Return to Emergency Department if you should have any new, worsening or concerning symptoms, such as [fever greater than 101 F, shaking chills, worsening pain, persistent vomiting or other bothersome symptoms] Prescriptions: New hydrocodone-acetaminophen 5-325 mg tablet 1 tab PO Q4-6H PRN (Reason: pain) Qty: 10 RF: 0 doxycycline hyclate 100 mg tablet 100 mg PO BID Qty: 20 RF: 0 No Action citalopram PO DAILY RF: 0 fenofibrate PO DAILY RF: 0 metformin 500 mg Tablet 500 mg PO BID RF: 0 Zyrtec 10 mg Capsule 10 mg PO DAILY RF: 0 Myrbetriq PO DAILY RF: 0 Micardis PO QPM RF: 0 Advair Diskus inhalation DAILY RF: 0 Astelin intranasal BID RF: 0 Adult One Daily Multivitamin 1 tab PO DAILY RF: 0
== END 2021-02-02 13:18 | disposition home or self-care (01) ==
PROVIDERS: Emergency Provider Emergency Medicine
DX: L03.311 Cellulitis of abdominal wall (principal)
CPT/HCPCS: 99281

== ENCOUNTER 2021-02-03 17:31 | Emergency (ER) | payer OTHER, SELFPAY ==
[2021-01-30 14:47] VITALS: BMI 38.9
--- NOTE | 2021-02-03 17:33 | DI.RAD.S_ITS ---
PROCEDURE: XR CHEST 1V INDICATIONS: suspected sepsis TECHNIQUE: One view of the chest was acquired. COMPARISON: None. FINDINGS: Surgical changes and devices: None. Lungs and pleura: An incomplete inspiratory result is noted, causing a crowded appearance to the lung markings. No focal infiltrates are seen. No pneumothorax or significant pleural effusions are seen. Mediastinum: Mediastinal contours appear normal. Heart size is normal. Bones and chest wall: No suspicious bony lesions. Age-appropriate bony degenerative changes are seen. Overlying soft tissues appear unremarkable. IMPRESSION: Limited portable chest examination, without a significant cardiopulmonary abnormality identified. Dictated by: Damien Celeste M.D. on 02/03/2021 at 17:01 Approved by: Damien Celeste M.D. on 02/03/2021 at 17:01
[2021-02-03 17:35] VITALS: BP 85/47; PULSE 106; RESP 20; TEMP 36.9; O2SAT 97
[2021-02-03] MEDS: SODIUM CHLORIDE 0.9% 1,000 ML 1000 ML IV (17:53)
[2021-02-03 17:55] LABS: Alanine Aminotransferase 13 IU/L (<35); Albumin 3.7 g/dL (3.5-5.0); Albumin Globulin Ratio 1.5 (1.0-2.8); Alkaline Phosphatase 58 U/L (38-126); Aspartate Aminotransferase 17 IU/L (14-36); BUN Creatinine Ratio 28.9 (6-22); Bilirubin Total 1.8 mg/dL (0.2-1.3); Blood Urea Nitrogen 26 mg/dL (7-17); Calcium 9.4 mg/dL (8.4-10.2); Carbon Dioxide 24 mmol/L (22-32); Chloride 103 mmol/L (98-107); Estimated Glomerular Filt Rate > 60.0 mL/min (>60); Globulin 2.5 g/dL (1.7-4.1); Glucose 159 mg/dL (80-110); HEMOLYSIS < 15 (0-50); Potassium 3.7 mmol/L (3.4-5.1); Sodium 137 mmol/L (137-145); Total Protein 6.2 g/dL (6.3-8.2)
[2021-02-03 18:07] LABS: NT-proBNP (BNP-Adult 18+) 1970 pg/mL (<125); Troponin I < 0.012 ng/mL (0.01-0.034)
[2021-02-03 18:11] LABS: Procalcitonin 4.12 ng/mL (<0.5)
[2021-02-03 18:12] VITALS: TEMP 38.3
[2021-02-03] MEDS: ACETAMINOPHEN 325 MG TABLET 975 MG PO (18:12)
[2021-02-03 18:21] LABS: Mean Corpuscular Hemoglobin 32.9 PG (26-34); White Blood Cell Count 2.2 X10^3/uL (4.5-11.0)
[2021-02-03 18:24] LABS: Lactate (Lactic Acid) 1.3 mmol/L (0.7-2.1)
[2021-02-03 18:25] LABS: Lipase < 10 U/L (23-300)
[2021-02-03 18:29] LABS: Add Manual Diff / Slide Review YES; Hematocrit 21.1 % (36-46); Hemoglobin 7.1 g/dL (12.0-16.0); Mean Corpuscular HGB Conc 33.7 % (30-36); Mean Corpuscular Volume 97.9 fL (80-100); Red Blood Cell Count 2.15 X10^6/uL (4.0-5.2); Red Cell Distribution Width 16.7 % (11.6-14.8)
[2021-02-03 18:31] LABS: Platelet Count 14 X10^3/uL (150-400)
--- NOTE | 2021-02-03 18:42 | ED.GENADULT ---
HPI - General Adult General Chief complaint: Fever Stated complaint: Weakness Time Seen by Provider: 02/03/21 17:48 Source: patient Mode of arrival: EMS Limitations: no limitations History of Present Illness HPI narrative: Patient is a 75-year-old female who is here for evaluation of weakness and worsening infection of her left lower abdomen. Patient was seen in this emergency department several days ago and subsequently admitted to the hospital because of a symptomatic anemia. She was given 2 units of packed red blood cells and was discharged home. She returned to the emergency department yesterday for redness in her left lower abdomen. At that point was determined that she had cellulitis. She was given a prescription for doxycycline and returns today for worsening of those symptoms. She states that no definitive answer as to why she was anemic was found during her hospital admission. She did not receive any injections at the site of the redness. There was no trauma. She has been taking the antibiotics as directed. During her initial admission to the hospital he was also found that she was pancytopenic. Consultation was placed to Hematology/Oncology who stated that she could be followed up as a outpatient. She has yet to schedule those appointments. She does not take anticoagulation. She states that generally she does not feel very well. Related Data Home Medications Medication Instructions Recorded Confirmed Zyrtec 10 mg PO DAILY 01/30/21 01/30/21 metformin 500 mg PO BID 01/30/21 01/30/21 citalopram 10 mg PO DAILY 02/03/21 02/03/21 famotidine 20 mg PO DAILY 02/03/21 02/03/21 fenofibrate 160 mg PO DAILY 02/03/21 02/03/21 hydrochlorothiazide 12.5 mg PO DAILY 02/03/21 02/03/21 metformin 500 mg PO BID 02/03/21 02/03/21 mirabegron [Myrbetriq] 50 mg PO DAILY 02/03/21 02/03/21 [id number] carb-K1 1 tab PO DAILY 02/03/21 02/03/21 [One-A-Day Women's 50 Plus] telmisartan 20 mg PO DAILY 02/03/21 02/03/21 Previous Rx's Medication Instructions Recorded doxycycline hyclate 100 mg PO BID #20 tab 02/02/21 hydrocodone-acetaminophen 1 tab PO Q4-6H PRN #10 tab 02/02/21 Allergies Allergy/AdvReac Type Severity Reaction Status Date / Time adhesive tape Allergy Severe SKIN Verified 02/03/21 18:34 BREAKDOWN/RASH cephalexin Allergy Severe Anaphylaxis Verified 02/03/21 18:34 ciprofloxacin Allergy Severe Anaphylaxis Verified 02/03/21 18:34 Iodine and Iodide Containing Allergy Intermediate RASH AND Verified 02/03/21 18:34 Produc ITCHING naproxen Allergy Intermediate RASH AND Verified 02/03/21 18:34 ITCHING Review of Systems Constitutional Constitutional: Reports body ache(s), Reports fatigue, Reports fever(s), Denies headache(s) and Reports weakness Eyes Eyes: Reports system reviewed and no additional complaints, except as documented ENT Ears, Nose, Mouth, and Throat: Denies vertigo, Denies dizziness, Denies headache(s) and Denies sore throat Cardiovascular Cardiovascular: Denies chest pain and Denies dyspnea Respiratory Respiratory: Denies dyspnea Gastrointestinal Gastrointestinal: Reports system reviewed and no additional complaints, except as documented, Reports abdominal pain (Over the area of redness left abdomen), Reports nausea and Denies vomiting Genitourinary Genitourinary: Denies dysuria Genitourinary: Denies dysuria Musculoskeletal Comments: Generalized body aches Integumentary/Breasts Comments: Redness in her left lower abdomen Neurologic Neurologic: Denies behavioral changes, Denies vertigo, Denies dizziness, Denies headache(s) and Reports weakness Psychiatric Psychiatric: Reports system reviewed and no additional complaints, except as documented and Denies behavioral changes Endocrine Endocrine: Reports system reviewed and no additional complaints, except as documented and Reports fatigue Hematologic/Lymphatic On Anticoagulants: No Allergic/Immunologic Allergic/Immunologic: Reports system reviewed and no additional complaints, except as documented Patient History Medical History Bladder incontinence HTN (hypertension) Peptic ulcer disease Type 2 diabetes mellitus Surgical History H/O hernia repair History of appendectomy History of section Social History household members: spouse Smoking Status: Former smoker Smoking Status: Former smoker alcohol intake frequency: 0-2 drinks per day Substance Use Type: does not use Exam Initial Vital Signs Initial Vital Signs: Vital Signs Temperature 98.5 F 02/03/21 17:35 Pulse Rate 106 H 02/03/21 17:35 Respiratory Rate 20 02/03/21 17:35 Blood Pressure 85/47 L 02/03/21 17:35 Pulse Oximetry 97 02/03/21 17:35 Const General: cooperative, comfortable and ill appearing Limitations: mental status not altered HENUT Head: normal to inspection and normocephalic Eyes General: appearance normal, both eyes and all related structures Chest Chest: No crepitus Resp Effort & Inspection: tachypneic Auscultation: clear to auscultation bilaterally Cardio Rate: regular rate Rhythm: regular rhythm Pulses: radial pulses present GI Inspection: non-distended Palpation: soft and tender (Over the area of redness left lower abdomen) Other: Normal external exam Back/Spine/Pelvis Back: No CVA tenderness Skin Other: Patient has a 10 x 10 cm area of purple/red that is fairly well demarcated in the left lower abdomen. It is warm to touch. There is no crepitus. It is not draining. 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) Stat 02/03/21 18:50 CT abdomen pelvis wo con Stat 02/03/21 19:16 Type and Screen Stat 02/03/21 20:15 Ictotest Urine Stat Urinalysis and Microscopic Stat Urine Culture Stat 02/03/21 21:50 Creatine Kinase Stat D Dimer Stat Fibrinogen Stat Partial Thromboplastin Time Stat Phosphorous Stat Prothrombin Time INR Stat Uric Acid Stat 02/04/21 00:54 CT head/brain wo con Stat 02/04/21 00:55 Venous Blood Gas Stat 02/04/21 01:29 Packed Cells Stat 02/04/21 01:35 Basic Metabolic Panel Stat Complete Blood Count AUTO DIFF Stat Lactate (Lactic Acid) Stat NT-proBNP (BNP-Adult 18+) Stat Procalcitonin Stat Troponin I Stat EKG-12 Lead Stat Sodium Chloride (Normal Saline 0.9%) 1,000 mls @ 125 mls/hr IV CONT PROMISE Last Admin: 02/03/21 22:11 Dose: 125 mls/hr Documented by: ANGELICA Clindamycin Phosphate (Cleocin) 900 mg in 50 mls @ 50 mls/hr IV NOW ONE Stop: 02/04/21 03:16 Last Admin: 02/04/21 02:21 Dose: 50 mls/hr Documented by: Discontinued Medications Acetaminophen (Acetaminophen 325 Mg Tablet) 975 mg PO NOW ONE Stop: 02/03/21 17:49 Last Admin: 02/03/21 18:12 Dose: 975 mg Documented by: WES Acetaminophen (Acetaminophen 650 Mg Supp) 650 mg WI NOW ONE Stop: 02/04/21 01:25 Last Admin: 02/04/21 01:53 Dose: 650 mg Documented by: HONG Sodium Chloride (Normal Saline 0.9%) 1,000 mls @ 1,000 mls/hr IV BOLUS ONE Stop: 02/03/21 18:32 Last Infusion: 02/03/21 21:26 Dose: 0 mls/hr Documented by: Admin: 02/03/21 17:53 Dose: 1,000 mls/hr Documented by: WES Sodium Chloride (Normal Saline 0.9%) 2,685 mls @ 895 mls/hr 30 ml/kg infuse over 3 hr (2685 ml) IV NOW ONE Stop: 02/03/21 21:37 Last Infusion: 02/04/21 00:14 Dose: 0 mls/hr Documented by: Admin: 02/03/21 20:07 Dose: 895 mls/hr Documented by: ANGELICA Piperacillin Sod/Tazobactam (Sod 4.5 gm/ Sodium Chloride) 100 mls @ 200 mls/hr IV NOW ONE Stop: 02/03/21 18:39 Last Infusion: 02/03/21 19:35 Dose: 0 mls/hr Documented by: Admin: 02/03/21 18:56 Dose: 200 mls/hr Documented by: WES Vancomycin HCl (Vancomycin) 1,000 mg in 200 mls @ 200 mls/hr IV NOW ONE Stop: 02/03/21 19:37 Last Infusion: 02/03/21 20:18 Dose: 0 mls/hr Documented by: Admin: 02/03/21 18:59 Dose: 200 mls/hr Documented by: [email or web address] Phytonadione 10 mg/ Sodium (Chloride) 101 mls @ 202 mls/hr IV NOW ONE Stop: 02/04/21 01:57 Last Admin: 02/04/21 02:14 Dose: 202 mls/hr Documented by: Piperacillin Sod/Tazobactam (Sod 4.5 gm/ Sodium Chloride) 100 mls @ 200 mls/hr IV NOW ONE Stop: 02/04/21 02:26 Last Admin: 02/04/21 02:32 Dose: 200 mls/hr Documented by: Morphine Sulfate (Morphine 4 Mg/Ml Inj) 4 mg IV NOW ONE Stop: 02/03/21 21:59 Last Admin: 02/03/21 22:11 Dose: 4 mg Documented by: ANGELICA Vital Signs Vital signs: Vital Signs - 8 hr 02/03/21 20:37 02/03/21 22:19 02/03/21 23:43 Temperature Pulse Rate 91 H 99 H 98 H Respiratory Rate 24 23 21 Blood Pressure 96/55 L 103/52 L 85/52 L Blood Pressure [Right Arm] Pulse Oximetry 96 96 96 02/04/21 01:20 02/04/21 01:51 02/04/21 02:11 Temperature 100.1 F H 99.3 F Pulse Rate 130 H 132 H Respiratory Rate 33 H 32 H Blood Pressure 92/55 L 94/55 L Blood Pressure [Right Arm] 94/55 L Pulse Oximetry 94 94 02/04/21 02:28 02/04/21 02:33 Temperature 99.2 F 99.2 F Pulse Rate 136 H 137 H Respiratory Rate 21 25 H Blood Pressure 95/59 L 93/55 L Blood Pressure [Right Arm] Pulse Oximetry 2 L Medical Decision Making Medical Records Medical records reviewed: Yes I reviewed the patient's medical records. Lab Data Lab results reviewed: Yes I reviewed the patient's lab results. Result diagrams: 02/04/21 01:35 02/04/21 01:35 Labs: Lab Results 02/03/21 02/03/21 02/03/21 Range/Units 17:25 17:25 17:25 WBC 2.2 L (4.5-11.0) X10^3/uL RBC 2.15 L (4.0-5.2) X10^6/uL Hgb 7.1 L (12.0-16.0) g/dL Hct 21.1 L (36-46) % MCV 97.9 (80-100) fL MCH 32.9 (26-34) PG MCHC 33.7 (30-36) % RDW 16.7 H (11.6-14.8) % Plt Count 14 L* (150-400) X10^3/uL Neut % (Auto) Not Reportable Lymph % (Auto) Not Reportable [place] % (Auto) Not Reportable Eos % (Auto) Not Reportable Baso % (Auto) Not Reportable Lymph # (Auto) Not Reportable [place] # (Auto) Not Reportable Baso # (Auto) Not Reportable Total Counted 100 Seg Neutrophils % 13.0 L (38-70) % Band Neutrophils % 7.0 (3-7) % Lymphocytes % (Manual) 12.0 L (25-45) % Atypical Lymphs % 61.0 H ( - 0) % Monocytes % (Manual) 5.0 (2-11) % Eosinophils % (Manual) 2.0 (2-4) % Neutrophils # (Manual) 440 L (1665-1575) /uL Differential Comment Note Platelet Estimate Decreased on smear Plt Morphology Comment Note RBC Morphology Normal morphology Poikilocytosis Anisocytosis PT (10.1-12.7) SECONDS INR (0.9-1.3) APTT (26.4-36.2) SECONDS Fibrinogen (211-428) mg/dL D-Dimer (<230) ng/mL VBG pH (7.33-7.43) VBG pCO2 (45-50) mmHg VBG pO2 (35-45) mmHg VBG HCO3 (23-28) mmol/L VBG Total CO2 (24-29) mmol/L VBG O2 Saturation (70-75) % VBG Base Excess (0-4) mmol/L Sodium 137 (137-145) mmol/L Potassium 3.7 (3.4-5.1) mmol/L Chloride 103 (98-107) mmol/L Carbon Dioxide 24 (22-32) mmol/L BUN 26 H (7-17) mg/dL Creatinine 0.90 (0.52-1.04) mg/dL Estimated GFR > 60.0 (>60) mL/min BUN/Creatinine Ratio 28.9 H (6-22) Glucose 159 H (80-110) mg/dL Lactate (0.7-2.1) mmol/L Uric Acid (2.5-6.2) mg/dL Calcium 9.4 (8.4-10.2) mg/dL Phosphorus (2.8-4.1) mg/dL Total Bilirubin 1.8 H (0.2-1.3) mg/dL AST 17 (14-36) IU/L ALT 13 (<35) IU/L Alkaline Phosphatase 58 (38-126) U/L Total Creatine Kinase (30-135) U/L Troponin I < 0.012 (0.01-0.034) ng/mL NT-Pro-B Natriuret Pep 1970 H (<125) pg/mL Total Protein 6.2 L (6.3-8.2) g/dL Albumin 3.7 (3.5-5.0) g/dL Globulin 2.5 (1.7-4.1) g/dL Albumin/Globulin Ratio 1.5 (1.0-2.8) Lipase < 10 L (23-300) U/L Procalcitonin 4.12 H (<0.5) ng/mL Urine Color Urine Appearance Urine pH (4.5-8.0) Ur Specific [place] (1.000-1.035) Urine Protein (Negative) Urine Glucose (UA) (Negative) g/dL Urine Ketones (NEGATIVE) Urine Occult Blood (Negative) Urine Nitrate (Negative) Urine Bilirubin (NEGATIVE) Ur Bilirubin Confirm (Negative) Urine Urobilinogen (0.2) E.U./dL Ur Leukocyte Esterase (NEGATIVE) Urine RBC (0-5/HPF) Urine WBC (0-5/HPF) Ur Squamous Epith Cells (0-5/HPF) Amorphous Sediment Urine Bacteria (None) Urine Mucus (Negative) Ur Culture Indicated? SARS-CoV-2 (PCR) (Negative) Blood Type Antibody Screen Crossmatch 02/03/21 02/03/21 02/03/21 Range/Units 17:55 18:38 19:16 WBC (4.5-11.0) X10^3/uL RBC (4.0-5.2) X10^6/uL Hgb (12.0-16.0) g/dL Hct (36-46) % MCV (80-100) fL MCH (26-34) PG MCHC (30-36) % RDW (11.6-14.8) % Plt Count (150-400) X10^3/uL Neut % (Auto) Lymph % (Auto) [place] % (Auto) Eos % (Auto) Baso % (Auto) Lymph # (Auto) [place] # (Auto) Baso # (Auto) Total Counted Seg Neutrophils % (38-70) % Band Neutrophils % (3-7) % Lymphocytes % (Manual) (25-45) % Atypical Lymphs % ( - 0) % Monocytes % (Manual) (2-11) % Eosinophils % (Manual) (2-4) % Neutrophils # (Manual) (0290-0825) /uL Differential Comment Platelet Estimate Plt Morphology Comment RBC Morphology Poikilocytosis Anisocytosis PT (10.1-12.7) SECONDS INR (0.9-1.3) APTT (26.4-36.2) SECONDS Fibrinogen (211-428) mg/dL D-Dimer (<230) ng/mL VBG pH (7.33-7.43) VBG pCO2 (45-50) mmHg VBG pO2 (35-45) mmHg VBG HCO3 (23-28) mmol/L VBG Total CO2 (24-29) mmol/L VBG O2 Saturation (70-75) % VBG Base Excess (0-4) mmol/L Sodium (137-145) mmol/L Potassium (3.4-5.1) mmol/L Chloride (98-107) mmol/L Carbon Dioxide (22-32) mmol/L BUN (7-17) mg/dL Creatinine (0.52-1.04) mg/dL Estimated GFR (>60) mL/min BUN/Creatinine Ratio (6-22) Glucose (80-110) mg/dL Lactate 1.3 (0.7-2.1) mmol/L Uric Acid (2.5-6.2) mg/dL Calcium (8.4-10.2) mg/dL Phosphorus (2.8-4.1) mg/dL Total Bilirubin (0.2-1.3) mg/dL AST (14-36) IU/L ALT (<35) IU/L Alkaline Phosphatase (38-126) U/L Total Creatine Kinase (30-135) U/L Troponin I (0.01-0.034) ng/mL NT-Pro-B Natriuret Pep (<125) pg/mL Total Protein (6.3-8.2) g/dL Albumin (3.5-5.0) g/dL Globulin (1.7-4.1) g/dL Albumin/Globulin Ratio (1.0-2.8) Lipase (23-300) U/L Procalcitonin (<0.5) ng/mL Urine Color Urine Appearance Urine pH (4.5-8.0) Ur Specific [place] (1.000-1.035) Urine Protein (Negative) Urine Glucose (UA) (Negative) g/dL Urine Ketones (NEGATIVE) Urine Occult Blood (Negative) Urine Nitrate (Negative) Urine Bilirubin (NEGATIVE) Ur Bilirubin Confirm (Negative) Urine Urobilinogen (0.2) E.U./dL Ur Leukocyte Esterase (NEGATIVE) Urine RBC (0-5/HPF) Urine WBC (0-5/HPF) Ur Squamous Epith Cells (0-5/HPF) Amorphous Sediment Urine Bacteria (None) Urine Mucus (Negative) Ur Culture Indicated? SARS-CoV-2 (PCR) Negative (Negative) Blood Type A Positive Antibody Screen Negative Crossmatch See Detail 02/03/21 02/03/21 02/03/21 Range/Units 20:15 21:50 21:50 WBC (4.5-11.0) X10^3/uL RBC (4.0-5.2) X10^6/uL Hgb (12.0-16.0) g/dL Hct (36-46) % MCV (80-100) fL MCH (26-34) PG MCHC (30-36) % RDW (11.6-14.8) % Plt Count (150-400) X10^3/uL Neut % (Auto) Lymph % (Auto) [place] % (Auto) Eos % (Auto) Baso % (Auto) Lymph # (Auto) [place] # (Auto) Baso # (Auto) Total Counted Seg Neutrophils % (38-70) % Band Neutrophils % (3-7) % Lymphocytes % (Manual) (25-45) % Atypical Lymphs % ( - 0) % Monocytes % (Manual) (2-11) % Eosinophils % (Manual) (2-4) % Neutrophils # (Manual) (3823-1892) /uL Differential Comment Platelet Estimate Plt Morphology Comment RBC Morphology Poikilocytosis Anisocytosis PT 23.7 H D (10.1-12.7) SECONDS INR 2.1 H (0.9-1.3) APTT 29 (26.4-36.2) SECONDS Fibrinogen 449 H (211-428) mg/dL D-Dimer 422 H (<230) ng/mL VBG pH (7.33-7.43) VBG pCO2 (45-50) mmHg VBG pO2 (35-45) mmHg VBG HCO3 (23-28) mmol/L VBG Total CO2 (24-29) mmol/L VBG O2 Saturation (70-75) % VBG Base Excess (0-4) mmol/L Sodium (137-145) mmol/L Potassium (3.4-5.1) mmol/L Chloride (98-107) mmol/L Carbon Dioxide (22-32) mmol/L BUN (7-17) mg/dL Creatinine (0.52-1.04) mg/dL Estimated GFR (>60) mL/min BUN/Creatinine Ratio (6-22) Glucose (80-110) mg/dL Lactate (0.7-2.1) mmol/L Uric Acid 4.8 (2.5-6.2) mg/dL Calcium (8.4-10.2) mg/dL Phosphorus 3.4 (2.8-4.1) mg/dL Total Bilirubin (0.2-1.3) mg/dL AST (14-36) IU/L ALT (<35) IU/L Alkaline Phosphatase (38-126) U/L Total Creatine Kinase < 20 L (30-135) U/L Troponin I (0.01-0.034) ng/mL NT-Pro-B Natriuret Pep (<125) pg/mL Total Protein (6.3-8.2) g/dL Albumin (3.5-5.0) g/dL Globulin (1.7-4.1) g/dL Albumin/Globulin Ratio (1.0-2.8) Lipase (23-300) U/L Procalcitonin (<0.5) ng/mL Urine Color Yellow Urine Appearance Sl cloudy Urine pH 5.0 (4.5-8.0) Ur Specific [place] 1.025 (1.000-1.035) Urine Protein 1+ H (Negative) Urine Glucose (UA) Trace H (Negative) g/dL Urine Ketones Trace H (NEGATIVE) Urine Occult Blood Negative (Negative) Urine Nitrate Positive H (Negative) Urine Bilirubin 1+ H (NEGATIVE) Ur Bilirubin Confirm Positive H (Negative) Urine Urobilinogen 1.0 (0.2) E.U./dL Ur Leukocyte Esterase Trace H (NEGATIVE) Urine RBC None seen (0-5/HPF) Urine WBC 5-10/hpf H (0-5/HPF) Ur Squamous Epith Cells 1-5 /hpf (0-5/HPF) Amorphous Sediment 1+ Urine Bacteria Few (2-10) H (None) Urine Mucus 1+ H (Negative) Ur Culture Indicated? Specimen cultured SARS-CoV-2 (PCR) (Negative) Blood Type Antibody Screen Crossmatch 02/04/21 02/04/21 02/04/21 Range/Units 00:55 01:35 01:35 WBC 2.9 L (4.5-11.0) X10^3/uL RBC 1.94 L (4.0-5.2) X10^6/uL Hgb 6.4 L* (12.0-16.0) g/dL Hct 19.5 L* (36-46) % MCV 100.7 H (80-100) fL MCH 32.8 (26-34) PG MCHC 32.6 (30-36) % RDW 17.2 H (11.6-14.8) % Plt Count 14 L* (150-400) X10^3/uL Neut % (Auto) Not Reportable Lymph % (Auto) Not Reportable [place] % (Auto) Not Reportable Eos % (Auto) Not Reportable Baso % (Auto) Not Reportable Lymph # (Auto) Not Reportable [place] # (Auto) Not Reportable Baso # (Auto) Not Reportable Total Counted 100 Seg Neutrophils % 9.0 L (38-70) % Band Neutrophils % 1.0 L (3-7) % Lymphocytes % (Manual) 15.0 L (25-45) % Atypical Lymphs % 71.0 H ( - 0) % Monocytes % (Manual) 4.0 (2-11) % Eosinophils % (Manual) (2-4) % Neutrophils # (Manual) 290 L (2093-4492) /uL Differential Comment Platelet Estimate Decreased on smear Plt Morphology Comment RBC Morphology See below Poikilocytosis 1+ H Anisocytosis 1+ H D PT (10.1-12.7) SECONDS INR (0.9-1.3) APTT (26.4-36.2) SECONDS Fibrinogen (211-428) mg/dL D-Dimer (<230) ng/mL VBG pH 7.31 L (7.33-7.43) VBG pCO2 42.0 L (45-50) mmHg VBG pO2 17 L (35-45) mmHg VBG HCO3 21 L (23-28) mmol/L VBG Total CO2 22 L (24-29) mmol/L VBG O2 Saturation 21 L (70-75) % VBG Base Excess -5.0 L (0-4) mmol/L Sodium 135 L (137-145) mmol/L Potassium 4.0 (3.4-5.1) mmol/L Chloride 106 (98-107) mmol/L Carbon Dioxide 20 L (22-32) mmol/L BUN 29 H (7-17) mg/dL Creatinine 1.35 H (0.52-1.04) mg/dL Estimated GFR 38.4 L (>60) mL/min BUN/Creatinine Ratio 21.5 (6-22) Glucose 138 H (80-110) mg/dL Lactate (0.7-2.1) mmol/L Uric Acid (2.5-6.2) mg/dL Calcium 8.4 (8.4-10.2) mg/dL Phosphorus (2.8-4.1) mg/dL Total Bilirubin (0.2-1.3) mg/dL AST (14-36) IU/L ALT (<35) IU/L Alkaline Phosphatase (38-126) U/L Total Creatine Kinase (30-135) U/L Troponin I < 0.012 (0.01-0.034) ng/mL NT-Pro-B Natriuret Pep (<125) pg/mL Total Protein (6.3-8.2) g/dL Albumin (3.5-5.0) g/dL Globulin (1.7-4.1) g/dL Albumin/Globulin Ratio (1.0-2.8) Lipase (23-300) U/L Procalcitonin 43.6 H (<0.5) ng/mL Urine Color Urine Appearance Urine pH (4.5-8.0) Ur Specific [place] (1.000-1.035) Urine Protein (Negative) Urine Glucose (UA) (Negative) g/dL Urine Ketones (NEGATIVE) Urine Occult Blood (Negative) Urine Nitrate (Negative) Urine Bilirubin (NEGATIVE) Ur Bilirubin Confirm (Negative) Urine Urobilinogen (0.2) E.U./dL Ur Leukocyte Esterase (NEGATIVE) Urine RBC (0-5/HPF) Urine WBC (0-5/HPF) Ur Squamous Epith Cells (0-5/HPF) Amorphous Sediment Urine Bacteria (None) Urine Mucus (Negative) Ur Culture Indicated? SARS-CoV-2 (PCR) (Negative) Blood Type Antibody Screen Crossmatch 02/04/21 02/04/21 Range/Units 01:35 01:35 WBC (4.5-11.0) X10^3/uL RBC (4.0-5.2) X10^6/uL Hgb (12.0-16.0) g/dL Hct (36-46) % MCV (80-100) fL MCH (26-34) PG MCHC (30-36) % RDW (11.6-14.8) % Plt Count (150-400) X10^3/uL Neut % (Auto) Lymph % (Auto) [place] % (Auto) Eos % (Auto) Baso % (Auto) Lymph # (Auto) [place] # (Auto) Baso # (Auto) Total Counted Seg Neutrophils % (38-70) % Band Neutrophils % (3-7) % Lymphocytes % (Manual) (25-45) % Atypical Lymphs % ( - 0) % Monocytes % (Manual) (2-11) % Eosinophils % (Manual) (2-4) % Neutrophils # (Manual) (4935-6077) /uL Differential Comment Platelet Estimate Plt Morphology Comment RBC Morphology Poikilocytosis Anisocytosis PT (10.1-12.7) SECONDS INR (0.9-1.3) APTT (26.4-36.2) SECONDS Fibrinogen (211-428) mg/dL D-Dimer (<230) ng/mL VBG pH (7.33-7.43) VBG pCO2 (45-50) mmHg VBG pO2 (35-45) mmHg VBG HCO3 (23-28) mmol/L VBG Total CO2 (24-29) mmol/L VBG O2 Saturation (70-75) % VBG Base Excess (0-4) mmol/L Sodium (137-145) mmol/L Potassium (3.4-5.1) mmol/L Chloride (98-107) mmol/L Carbon Dioxide (22-32) mmol/L BUN (7-17) mg/dL Creatinine (0.52-1.04) mg/dL Estimated GFR (>60) mL/min BUN/Creatinine Ratio (6-22) Glucose (80-110) mg/dL Lactate 2.1 (0.7-2.1) mmol/L Uric Acid (2.5-6.2) mg/dL Calcium (8.4-10.2) mg/dL Phosphorus (2.8-4.1) mg/dL Total Bilirubin (0.2-1.3) mg/dL AST (14-36) IU/L ALT (<35) IU/L Alkaline Phosphatase (38-126) U/L Total Creatine Kinase (30-135) U/L Troponin I (0.01-0.034) ng/mL NT-Pro-B Natriuret Pep 3890 H (<125) pg/mL Total Protein (6.3-8.2) g/dL Albumin (3.5-5.0) g/dL Globulin (1.7-4.1) g/dL Albumin/Globulin Ratio (1.0-2.8) Lipase (23-300) U/L Procalcitonin (<0.5) ng/mL Urine Color Urine Appearance Urine pH (4.5-8.0) Ur Specific [place] (1.000-1.035) Urine Protein (Negative) Urine Glucose (UA) (Negative) g/dL Urine Ketones (NEGATIVE) Urine Occult Blood (Negative) Urine Nitrate (Negative) Urine Bilirubin (NEGATIVE) Ur Bilirubin Confirm (Negative) Urine Urobilinogen (0.2) E.U./dL Ur Leukocyte Esterase (NEGATIVE) Urine RBC (0-5/HPF) Urine WBC (0-5/HPF) Ur Squamous Epith Cells (0-5/HPF) Amorphous Sediment Urine Bacteria (None) Urine Mucus (Negative) Ur Culture Indicated? SARS-CoV-2 (PCR) (Negative) Blood Type Antibody Screen Crossmatch Imaging Data Chest x-ray: Radiologist's Impression: [address] [id number] ReportSigned Patient: Laura Farris KMR#: [id number]: [id number]:[id number]/Sex: 75 / FDate of Service: 02/03/21Loc: EDAccession Number: [id number] Procedure: XR chest 1V Ordering Provider: Danna Vasques D.O. PROCEDURE: XR CHEST 1V INDICATIONS: suspected sepsis TECHNIQUE: One view of the chest was acquired. COMPARISON: None. FINDINGS: Surgical changes and devices: None. Lungs and pleura: An incomplete inspiratory result is noted, causing a crowded appearance to the lung markings. No focal infiltrates are seen. No pneumothorax or significant pleural effusions are seen. Mediastinum: Mediastinal contours appear normal. Heart size is normal. Bones and chest wall: No suspicious bony lesions. Age-appropriate bony degenerative changes are seen. Overlying soft tissues appear unremarkable. IMPRESSION: Limited portable chest examination, without a significant cardiopulmonary abnormality identified. Dictated by: Damien Celeste M.D. on 02/03/2021 at 17:01 Approved by: Damien Celeste M.D. on 02/03/2021 at 17:01 CT scan - abdomen/pelvis: Radiologist's Impression: [address] [id number] Scan ReportSigned Patient: Laura Farris KMR#: [id number]: [id number]:[id number]/Sex: 75 / FDate of Service: 02/03/21Loc: EDAccession Number: [id number] Procedure: CT abdomen pelvis wo con Ordering Provider: Erik Kerr D.O. PROCEDURE: CT ABDOMEN PELVIS WO CON INDICATIONS: LLQ cellulitis eval for abscess TECHNIQUE: Noncontrast 5 mm thick sections acquired from the diaphragms to the symphysis. 5 mm coronal and sagittal reformats were then performed. For radiation dose reduction, the following was used: automated exposure control, adjustment of mA and/or kV according to patient size. COMPARISON: None. FINDINGS: Image quality: Excellent. ABDOMEN: Lung bases: There is a small calcified nodule within the left lower lobe compatible with a calcified granuloma. There is mild linear atelectasis or scarring in the lung bases. Heart size is normal. There is trace pericardial fluid or pericardial thickening anteriorly. Solid organs: Noncontrast evaluation of the liver demonstrates no focal hepatic lesions. There are a few small calcified gallstones without wall thickening or pericholecystic fluid. There is mild fatty atrophy of the pancreas. No pancreatic duct dilatation or peripancreatic fluid collections. Spleen is normal in size. 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 No adrenal nodules. Kidneys demonstrate no hydronephrosis. Peritoneum and bowel: Unenhanced bowel loops demonstrate normal wall thickness and caliber. The appendix is not discretely visualized and may be surgically absent. No pericecal inflammatory changes. Colonic diverticulosis is present without acute diverticulitis. No free fluid or air. Nodes and vessels: No retroperitoneal or mesenteric adenopathy by size criteria. Aorta and inferior vena cava are normal in caliber. Miscellaneous: There is diffuse subcutaneous edema and skin thickening within the left abdominal wall with a basilar predominance. No discrete loculated fluid collection to suggest an abscess. No ventral hernias. PELVIS: Genitourinary: Bladder wall thickness is normal. Miscellaneous: No inguinal hernias or adenopathy. Bones: No suspicious bony lesions. No vertebral body compression fractures. There is grade 2 anterolisthesis at L5-S1 with bilateral pars defects. There is severe degenerative disc disease at L5-S1. IMPRESSION: 1. Subcutaneous fat stranding and skin thickening in the left lower abdominal wall consistent with history of cellulitis. No evidence of an abscess collection. 2. Colonic diverticulosis without acute diverticulitis. 3. Grade 2 anterolisthesis at L5-S1 with bilateral pars defects. Dictated by: Bruce Wagner M.D. on 02/03/2021 at 19:29 Approved by: Bruce Wagner M.D. on 02/03/2021 at 19:39 CT scan - head: Attestation: I personally reviewed and interpreted this imaging study as follows: Radiologist's Impression: No acute findings ECG Data Attestation: I personally reviewed and interpreted this ECG as follows: Prior ECG tracings: not available for review Interpretation: Presentation EKG Sinus tachycardia Ventricular rate 106 Left axis deviation Normal QRS Normal QTC Nonspecific ST T wave changes Repeat EKG Sinus tachycardia Ventricular rate 132 Left axis deviation Normal QRS Normal QTC Nonspecific ST T wave changes MDM Narrative Medical decision making narrative: Patient does meet sepsis criteria her tachypnea, fever and tachycardia. The redness over her left lower abdomen is warm to the touch. There is no crepitus under the area. A CT scan was ordered to make sure there was no deep abscess and there was no subsequent sign of a deep abscess nor any air in the area. Other than the redness of her lower abdomen I a generally do not have any other source of an infection. She does have a nitrite positive urine but denies any urinary symptoms. Blood cultures were obtained. Urine cultures obtained. Chest x-ray shows no signs of pneumonia. Patient was hypotensive with systolic in the mid upper 80s upon arrival however her mean arterial pressure was 65 or higher. She was given antibiotics based on her allergies. Patient is pancytopenic. This was present during her last admission to the hospital. Unsure the exact etiology of this. She does not have any signs of active bleeding however the redness in her left lower abdomen. Attempted to contact [facility], [facility], [facility], [facility], [facility] and there were no bed availability. I feel that patient should be at a facility that has heme/Onc available as an inpatient. I did discuss the case with Dr. Yang at [facility] who stated that they potentially could have a bed availability. She was given 4 mg morphine because of discomfort. During 1 of the routine nursing evaluations and vital signs was found that the patient was altered. I went to evaluate the patient in she was able to talk but definitely was more altered compared to her presentation. Blood glucose was in the 130s. Head CT was ordered to evaluate for any bleeding there worse no signs of any acute bleeding. Patient did not have any localizing neurologic signs. She was able to smile and stick out her tongue. She was able to move both of her feet and also squeeze with both of her hands. Patient not a candidate for tPA given her coagulopathy and I do feel that her altered mental status was more of a metabolic issue rather than a CVA. She did have a fever the time she was given rectal Tylenol. To consider other etiologies such as the morphine that was given last evening however she did not have pinpoint pupils. A VBG was ordered to evaluate for elevated CO2. Did have pH is 7.3 and a pCO2 of 42. Patient is maintaining her airway. Will hold on intubation. She has good peripheral access and given her coagulopathy we will hold on central line for now. Given her change in her persistent hypotension and now tachycardia will transfuse 2 units of packed red blood cells. Unfortunately I do not have platelet capability here. Repeat EKG shows sinus tachycardia. The patient's was called in he did come to bedside. He agreed to the blood transfusion. I re-contacted Dr. Yang who stated that her facility did have a ICU bed capability. We very much appreciate their help. We will add clinda to treat even the slightest possibility of a necrotizin fasciitis although I do feel this is less likely. IV vitamin K was administered per Dr. Yang recommendation. I did discuss the transfer the patient's who expressed understanding. Will send by air left. Patient is currently stable for transfer. Patient's COVID is negative. She is full code. She received 4.5 g of Zosyn at 1930 on 02/03/2021. She received 1 g vancomycin at 2018 on 02/03/2021. She received 900 mg of clindamycin at 0220 on 02/04/2021. She received a 2nd dose of 4.5 g Zosyn at 0300 on 02/04/2021. Patient will be transfused 2 units of packed red blood cells. First unit started at 0230 on 02/04/2021 Critical Care Time Critical Care Time Critical Care Time: Yes Total Critical Care Time: 60 Attestation: The high probability of a clinically significant, sudden or life threatening deterioration of the neurologic/circulatory system(s) required my full and direct attention, intervention and personal management. The aggregate critical care time was 60 minutes. This time is in addition to time spent performing reported procedures but includes the following: [x] Data Review and interpretation [x] Patient assessment and monitoring of vital signs [x] Documentation x Medication orders and management Discharge Plan Departure Patient Disposition: [facility] Clinical Impression: Cellulitis, Pancytopenia, Sepsis, Altered mental status Prescriptions: No Action hydrocodone-acetaminophen 5-325 mg tablet 1 tab PO Q4-6H PRN (Reason: pain) Qty: 10 RF: 0 doxycycline hyclate 100 mg tablet 100 mg PO BID Qty: 20 RF: 0 metformin 500 mg Tablet 500 mg PO BID RF: 0 citalopram 10 mg Tablet 10 mg PO DAILY RF: 0 famotidine 20 mg Tablet 20 mg PO DAILY RF: 0 hydrochlorothiazide 12.5 mg Capsule 12.5 mg PO DAILY RF: 0 telmisartan 20 mg Tablet 20 mg PO DAILY RF: 0 fenofibrate 160 mg Tablet 160 mg PO DAILY RF: 0 Myrbetriq 50 mg Tablet Extended Release 24 Hr 50 mg PO DAILY RF: 0 One-A-Day Women's 50 Plus 400 mcg-500 mg calcium-20 mcg Tablet 1 tab PO DAILY RF: 0 metformin 500 mg Tablet 500 mg PO BID RF: 0 Zyrtec 10 mg Capsule 10 mg PO DAILY RF: 0
--- NOTE | 2021-02-03 18:50 | DI.CT.S_ITS ---
PROCEDURE: CT ABDOMEN PELVIS WO CON INDICATIONS: LLQ cellulitis eval for abscess TECHNIQUE: Noncontrast 5 mm thick sections acquired from the diaphragms to the symphysis. 5 mm coronal and sagittal reformats were then performed. For radiation dose reduction, the following was used: automated exposure control, adjustment of mA and/or kV according to patient size. COMPARISON: None. FINDINGS: Image quality: Excellent. ABDOMEN: Lung bases: There is a small calcified nodule within the left lower lobe compatible with a calcified granuloma. There is mild linear atelectasis or scarring in the lung bases. Heart size is normal. There is trace pericardial fluid or pericardial thickening anteriorly. Solid organs: Noncontrast evaluation of the liver demonstrates no focal hepatic lesions. There are a few small calcified gallstones without wall thickening or pericholecystic fluid. There is mild fatty atrophy of the pancreas. No pancreatic duct dilatation or peripancreatic fluid collections. Spleen is normal in size. 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 No adrenal nodules. Kidneys demonstrate no hydronephrosis. Peritoneum and bowel: Unenhanced bowel loops demonstrate normal wall thickness and caliber. The appendix is not discretely visualized and may be surgically absent. No pericecal inflammatory changes. Colonic diverticulosis is present without acute diverticulitis. No free fluid or air. Nodes and vessels: No retroperitoneal or mesenteric adenopathy by size criteria. Aorta and inferior vena cava are normal in caliber. Miscellaneous: There is diffuse subcutaneous edema and skin thickening within the left abdominal wall with a basilar predominance. No discrete loculated fluid collection to suggest an abscess. No ventral hernias. PELVIS: Genitourinary: Bladder wall thickness is normal. Miscellaneous: No inguinal hernias or adenopathy. Bones: No suspicious bony lesions. No vertebral body compression fractures. There is grade 2 anterolisthesis at L5-S1 with bilateral pars defects. There is severe degenerative disc disease at L5-S1. IMPRESSION: 1. Subcutaneous fat stranding and skin thickening in the left lower abdominal wall consistent with history of cellulitis. No evidence of an abscess collection. 2. Colonic diverticulosis without acute diverticulitis. 3. Grade 2 anterolisthesis at L5-S1 with bilateral pars defects. Dictated by: Bruce Wagner M.D. on 02/03/2021 at 19:29 Approved by: Bruce Wagner M.D. on 02/03/2021 at 19:39
[2021-02-03] MEDS: PIPERACILLIN/TAZO 4.5 GM in SODIUM CHLORIDE 0.9% 100 ML 200 ML IV (18:56)
[2021-02-03] MEDS: VANCOMYCIN 1,000 MG/200 ML PIGGYBACK 200 MG IV (18:59)
[2021-02-03 19:53] LABS: Neutrophils Absolute Manual 440 /uL (3000-5900); Total Cells Counted 100
[2021-02-03 19:59] LABS: Platelet Estimate Decreased on smear; Platelet Morphology Comment NOTE; RBC Morphology Normal Morphology
[2021-02-03 20:00] LABS: COVID19 - ADMIT (NP swab/PCR) Negative (Negative)
[2021-02-03] MEDS: SODIUM CHLORIDE 0.9% 895 ML IV (20:07)
[2021-02-03 20:19] LABS: RBC Urine None Seen (0-5/HPF)
[2021-02-03 20:32] LABS: Appearance Urine UA SL CLOUDY; Bilirubin Urine UA 1+ (NEGATIVE); Color Urine UA YELLOW; Glucose Urine UA TRACE g/dL (Negative); Ketones Urine UA TRACE (NEGATIVE); Leukocyte Esterase Urine UA TRACE (NEGATIVE); Nitrite Urine UA POSITIVE (Negative); Occult Blood Urine UA NEGATIVE (Negative); Protein Urine UA 1+ (Negative); Specific Gravity Urine UA 1.025 (1.000-1.035)
[2021-02-03 20:37] VITALS: BP 96/55; PULSE 91; RESP 24; O2SAT 96
[2021-02-03 20:42] LABS: Ictotest Urine Positive (Negative)
[2021-02-03 20:44] LABS: Amorphous Sediment Urine 1+; Bacteria Urine Few (2-10); Culture Indicated Urine Specimen Cultured; Mucus Urine 1+ (Negative); Squamous Epithelial Cell Urine 1-5 /HPF (0-5/HPF); WBC Urine 5-10/HPF (0-5/HPF)
[2021-02-03 21:37] LABS: Morphology Comment NOTE
[2021-02-03] MEDS: SODIUM CHLORIDE 0.9% 1,000 ML 125 ML IV (22:11)
[2021-02-03] MEDS: MORPHINE 4 MG/ML INJ IV (22:11)
[2021-02-03 22:13] LABS: Creatine Kinase < 20 U/L (30-135); Phosphorous 3.4 mg/dL (2.8-4.1); Uric Acid 4.8 mg/dL (2.5-6.2)
[2021-02-03 22:14] LABS: Fibrinogen 449 mg/dL (211-428); INR 2.1 (0.9-1.3); Prothrombin Time 23.7 SECONDS (10.1-12.7)
[2021-02-03 22:17] LABS: D Dimer 422 ng/mL (<230); PTT Partial Thromboplastin Tim 29 SECONDS (26.4-36.2)
[2021-02-03 22:19] VITALS: BP 103/52; PULSE 99; RESP 23; O2SAT 96
[2021-02-03 23:43] VITALS: BP 85/52; PULSE 98; RESP 21; O2SAT 96
--- NOTE | 2021-02-04 00:54 | DI.CT.S_ITS ---
PROCEDURE: CT HEAD/BRAIN WO CON INDICATIONS: Altered mental status TECHNIQUE: Noncontrast 4.5 mm thick angled axial sections acquired from the foramen magnum to the vertex, with coronal and sagittal reformats. For radiation dose reduction, the following was used: automated exposure control, adjustment of mA and/or kV according to patient size. COMPARISON: None. FINDINGS: Image quality: Excellent. CSF spaces: Basal cisterns are patent. No extra-axial fluid collections. The ventricles are symmetric in size and shape. Brain: No intracranial bleeds or masses. There is cerebral volume loss for age, with resultant ventricular and sulcal prominence. There are periventricular and deep white matter chronic small vessel ischemic changes. There is intracranial internal carotid artery atherosclerosis. Skull and face: Calvarium and visualized facial bones appear intact, without suspicious lesions. Sinuses: Visualized sinuses and mastoids are clear. IMPRESSION: 1. No acute intracranial abnormalities. 2. Cerebral volume loss and chronic microvascular ischemic changes. No significant discrepancy with the night cleaner radiology preliminary report. Dictated by: Sahara Michel M.D. on 02/04/2021 at 7:50 Approved by: Sahara Michel M.D. on 02/04/2021 at 7:50
[2021-02-04 01:20] VITALS: TEMP 37.8
[2021-02-04 01:51] VITALS: BP 92/55; PULSE 130; RESP 33; O2SAT 94
[2021-02-04 01:53] LABS: Mean Corpuscular HGB Conc 32.6 % (30-36); Mean Corpuscular Hemoglobin 32.8 PG (26-34); Mean Corpuscular Volume 100.7 fL (80-100); Red Blood Cell Count 1.94 X10^6/uL (4.0-5.2); Red Cell Distribution Width 17.2 % (11.6-14.8); White Blood Cell Count 2.9 X10^3/uL (4.5-11.0)
[2021-02-04] MEDS: ACETAMINOPHEN 650 MG SUPP PR (01:53)
[2021-02-04 01:56] LABS: Add Manual Diff / Slide Review YES
[2021-02-04 01:58] LABS: Hematocrit 19.5 % (36-46); Hemoglobin 6.4 g/dL (12.0-16.0)
[2021-02-04 01:59] LABS: Platelet Count 14 X10^3/uL (150-400)
[2021-02-04 02:00] LABS: HCO3 VBG 21 mmol/L (23-28); PO2 VBG 17 mmHg (35-45); Total CO2 VBG 22 mmol/L (24-29); pH VBG 7.31 (7.33-7.43)
[2021-02-04 02:01] LABS: Oxygen Saturation VBG 21 % (70-75)
[2021-02-04 02:02] LABS: BUN Creatinine Ratio 21.5 (6-22); Blood Urea Nitrogen 29 mg/dL (7-17); Calcium 8.4 mg/dL (8.4-10.2); Carbon Dioxide 20 mmol/L (22-32); Chloride 106 mmol/L (98-107); Estimated Glomerular Filt Rate 38.4 mL/min (>60); Glucose 138 mg/dL (80-110); HEMOLYSIS < 15 (0-50); Sodium 135 mmol/L (137-145)
[2021-02-04 02:03] LABS: Lactate (Lactic Acid) 2.1 mmol/L (0.7-2.1)
[2021-02-04 02:11] VITALS: BP 94/55; PULSE 132; RESP 25; RESP 32; TEMP 37.4; O2SAT 94
[2021-02-04 02:12] LABS: NT-proBNP (BNP-Adult 18+) 3890 pg/mL (<125)
[2021-02-04 02:14] LABS: Troponin I < 0.012 ng/mL (0.01-0.034)
[2021-02-04] MEDS: PHYTONADIONE (VIT K1) 10 MG in SODIUM CHLORIDE 0.9% 100 ML 202 ML IV (02:14)
[2021-02-04 02:19] LABS: Procalcitonin 43.6 ng/mL (<0.5)
[2021-02-04] MEDS: CLINDAMYCIN 900 MG/50 ML PIGGYBACK 50 MG IV (02:21)
--- NOTE | 2021-02-04 02:21 | PC.NURSE ---
Please see paper chart for additional vital signs.
[2021-02-04 02:27] LABS: Neutrophils Absolute Manual 290 /uL (3000-5900); Total Cells Counted 100
[2021-02-04 02:28] VITALS: BP 95/59; PULSE 136; RESP 21; TEMP 37.3
[2021-02-04 02:28] LABS: Platelet Estimate Decreased on smear
[2021-02-04 02:29] LABS: Anisocytosis 1+
[2021-02-04 02:31] LABS: Poikilocytosis 1+
[2021-02-04] MEDS: PIPERACILLIN/TAZO 4.5 GM in SODIUM CHLORIDE 0.9% 100 ML 200 ML IV (02:32)
[2021-02-04 02:33] VITALS: BP 93/55; PULSE 137; RESP 25; TEMP 37.3; O2SAT 2
--- NOTE | 2021-02-04 02:49 | PC.NURSE ---
Second unit PRBC's sent with airlift to infuse en route. First unit infusing over one hour per verbal order from Dr Kerr
[2021-02-04 03:14] VITALS: TEMP 37.3
--- NOTE | 2021-02-04 03:18 | PC.NURSE ---
Summary of care: Pt woke around midnight with new confusion. CBG 160. Dr Kerr summoned to bedside. HR increased to 130's with fever. Head CT ordered and pt transported with bus driver/monitor and RN. VBG and repeat labs obtained. Plan of care discussed with Dr Kerr, 1st unit PRBC's started with second unit to be sent with [facility]. Pt c/o pain to left abd where softball-size purple lesion noted. Rectal tylenol given for fever. Pt transferred to [place] in [place] via Airlift. Care transferred to [facility] flight nurse.
[2021-02-04 03:41] LABS: Reflexed Lactate in 2 Hours Y
--- NOTE | 2021-02-06 13:17 | ONC.MSW ---
T/C-New Referral Navigation-update Activity: This BAGGAGE CLERK has attempted to reach this pt 3x, left messages on 02/04, 02/05, tried calling 02/06, it went straight to voicemail. Will place referral in calls/pending accordian folder.
== END 2021-02-04 03:00 | disposition short-term general hospital (02) ==
PROVIDERS: Emergency Medicine; Emergency Provider Emergency Medicine
DX: L03.311 Cellulitis of abdominal wall (principal); D61.818 Other pancytopenia; A41.9 Sepsis, unspecified organism; R41.82 Altered mental status, unspecified; R00.0 Tachycardia, unspecified; R50.9 Fever, unspecified; R06.82 Tachypnea, not elsewhere classified; R79.89 Other specified abnormal findings of blood chemistry; Z20.822 Contact with and (suspected) exposure to COVID-19
CPT/HCPCS: 36415; 36430; 70450; 71045; 74176; 80048; 80053; 81001; 82550; 82805; 83605; 83690; 83880; 84100; 84145; 84484; 84550; 85007; 85025; 85379; 85384; 85610; 85730; 86850; 86900; 86901; 87040; 87077; 87086; 87186; 87635; 93005; 93010; 96361; 96365; 96366; 96368; 96375; 99285; 99291; 99292; C9803; P9016; J2270; J2543; J3430